=== PATIENT | female | born 1960 | race African-American/Black ===

== ENCOUNTER 2019-11-24 11:33 | Emergency (ER) | payer OTHER ==
--- OUTSIDE RECORDS SUMMARY | 2019-11-24 11:36 | XMS REPORT | Continuity of Care Document ---
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 incidentaloma 19 [facility] Hx of partial Active 01/30/2019 [facility] adrenalectomy [facility] Medications Medication Details Route Status Patient Ordering Order Source Instructions Provider Date valacyclovir Take [address] [facility] (VALTREX) 500 MG by mouth 019 [facility] of tablet two times Medicine daily. colchicine 0.6 MG Take 1 Tab ORAL Active [place] tablet by mouth 019 [facility] every 2 Medicine hours as needed. esomeprazole Take [address] [facility] (NEXIUM) 40 MG by mouth 019 [place] of capsule once. Medicine bisoprolol-hydroch Take 1 Tab ORAL Active [facility] lorothiazide by mouth 019 [place] of (ZIAC) 5-6.25 MG once. Medicin e per tablet metformin Take [address] [facility] (GLUCOPHAGE) 500 by mouth 019 [facility] MG tablet two times Medicine daily. venlafaxine Take 1 Cap ORAL Active Al (EFFEXOR-XR) 150 by mouth 019 [facility] MG XR capsule once. Medicine losartan (COZAAR) Take 100 ORAL Active [facility] 100 MG tablet mg by [facility] mouth Medicine daily. Magnesium Citrate Take 100 ORAL Active [facility] 100 MG TABS mg by [facility] mouth [facility] daily. folic acid Take [address] [facility] (FOLVITE) 400 MCG mcg by [facility] of tablet mouth Medicine daily. Cyanocobalamin Take [address] [facility] (B-12) 500 MCG mcg by [facility] f TABS mouth Medicine daily. Cholecalciferol Take 50 ORAL Active Al (VITAMIN D3) 25 mcg by [facility] TABS mouth Medicine daily. vitamin E 400 Take 400 ORAL Active Al units capsule Units by [place] o f mouth Medicine daily. Sennosides-Docusat Take by ORAL Active [facility] Sodium (COLACE mouth two [facility] of 2-IN-1 OR) times Medicine daily. Biotin 5000 MCG Take 5,000 ORAL Active [facility] CAPS mg by [facility] Medicine daily. IRON-VITAMIN C OR Take by ORAL Active [facility] daily. Medicine Calcium Take by ORAL Active [facility] Polycarbophil mouth [facility] (FIBER-CAPS OR) daily. Medicine SPIRONOLACTONE OR Take by ORAL Active [facility] daily. Medicine Allergies, Adverse Reactions, Alerts Substance Category Reaction Severity Reaction Status Date Comments S ource type Reported Codeine Propensity Active [place] to adverse 9 [facility] reactions of to drug Medicine Immunizations No Data Provided for This Section Results No Data Provided for This Section Pathology Reports No Data Provided for This Section Diagnostic Reports No Data Provided for This Section Consultation Notes No Data Provided for This Section Discharge Summaries No Data Provided for This Section History and Physicals No Data Provided for This Section Vital Signs Vital Sign Value Date Comments Source Systolic (mm Hg) 146 01/29/2019 [facility]encita ege [facility] Diastolic (mm Hg) 77 01/29/2019 [facility] Col lege [facility] Heart Rate 74 01/29/2019 [facility] Temperature Oral (F) 36.89 Danika 01/29/2019 [facility] Height 172.7 cm 01/29/2019 [facility] Weight 116.121 01/29/2019 [facility] Encounters Location Location Encounter Encounter Reason Attending ADM [place] Stat [place] Source Details Type Number For Provider Date Date Visit BCM - Office [id number] Arnie 01/29 01/29 [facility] Dany Yang Visit oYlanda DRAKE /2018 [facility] of Department Medici ne of Surgery Procedures No Data Provided for This Section Assessment and Plan No Data Provided for This Section Plan of Care Plan of Care Date Source FLU VACCINE > 6 MONTHS 01/18/2019 [facility] CERVICAL CANCER SCREENING 3 YEAR 12/07/1979 [facility] FOLLOW UP BMI FOLLOW UP PLAN 1976 [facility] dicine TETANUS SHOT (ADULT) 1973 [facility] edicine COLON CANCER SCREENIN1958 [facility] o f [facility] COLONOSCOPY Social History Social History Date Source Tobacco UseTypesPacks/DayYears UsedDate 01/30/2019 [facility] Smoker Medicine Smokeless Tobacco: Never Used Alcohol UseDrinks/Weekoz/WeekComments Never Alcohol HabitsAnswerDate Recorded How often do you have a drink containing alcohol? Never 11/24/2018 How many drinks containing alcohol do yo u have on a typical day when you are drinking? Not asked How often do you have six or more drinks on one occasion? Not asked Sex Assigned at BirthDate Recorded Not on file Job Start DateOccupationIndustry Not on file Not on file Not on file Travel HistoryTravel StartTravel End No recent travel history available. documented as of this encounter Family History No Data Provided for This Section Advance Directives No Data Provided for This Section Functional Status No Data Provided for This Section
[2019-11-24 13:20] LABS: Absolute Lymphocytes (CBC) 2.4 K/uL (0.7-4.9); Basophils % 0.5 % (0-1.3); Hematocrit 40.9 % (36.0-45.0); Lymphocytes % 39.2 % (15.3-44.8); MPV 7.7 fL (7.6-11.3); RBC Red Blood Cell Count 5.28 M/uL (3.86-4.86)
--- NOTE | 2019-11-24 13:27 | RAD REPORT ---
EXAM DESCRIPTION: RAD - Chest Single View - 11/24/2019 1:01 pm CLINICAL HISTORY: right sided pleurisy COMPARISON: Two view chest January 2019 TECHNIQUE: AP portable chest image was obtained 11/24/2019 1:01 pm . FINDINGS: Lung volumes are low. No focal mass or consolidation seen. No significant failure or volum e overload suspected. Heart and vasculature are normal. No measurable pleural effusion and no pneumot horax. No acute bony abnormality seen. No acute aortic findings suspected. IMPRESSION: Limited portable chest without acute cardiopulmonary finding.
[2019-11-24 13:47] LABS: ALT/SGPT 28 U/L (12-78); AST/SGOT 21 U/L (15-37); Albumin 3.2 g/dL (3.4-5.0); Alkaline Phosphatase 98 U/L (45-117); BUN Blood Urea Nitrogen 15 mg/dL (7-18); Bicarbonate 29 mmol/L (21-32); Bilirubin Direct < 0.1 mg/dL (0-0.2); Bilirubin Total 0.2 mg/dL (0.2-1.0); Glucose Level 132 mg/dL (74-106); Lipase 100 U/L (73-393); Potassium 4.5 mmol/L (3.5-5.1); Protein, Total 7.6 g/dL (6.4-8.2); Sodium Level 140 mmol/L (136-145); Troponin (Emerg Dept Use Only) < 0.02 ng/mL (0.0-0.045)
--- NOTE | 2019-11-24 14:29 | RAD REPORT ---
EXAM DESCRIPTION: CT - Chest For Pe Angio - 11/24/2019 2:15 pm CLINICAL HISTORY: CHEST PAIN COMPARISON: Chest Single View dated 11/24/2019; Abdomen Pelvis W Contrast dated 11/24/2019 TECHNIQUE: Dynamically enhanced 3 mm thick images of the chest were obtained during administration o f approximately 150mL Isovue 370 IV contrast. Coronal and oblique MIP reconstruction images were gene rated and reviewed. Exam utilizes a protocol to evaluate the pulmonary arterial tree. All CT scans are performed using dose optimization technique as appropriate and may include automated exposure control or mA/KV adjustment according to patient size. FINDINGS: No pulmonary emboli are identified. The aorta as imaged shows no acute or suspicious finding. No pericardial thickening or effusion. No infiltrate or mass in the lung parenchyma. No pleural effusion or pleural thickening. Heart size i s prominent. Motion degradation limits interstitial assessment. No mediastinal or hilar suspicious masses. No chest wall masses or abnormal axillary lymphadenopathy. Thoracic spine degenerative changes are present. No acute or destructive thoracic spine finding. IMPRESSION: No pulmonary emboli identified. No focal mass or consolidation. A minimal interstitial edema or infiltrate process could be masked by the respiratory motion.
--- NOTE | 2019-11-24 14:37 | RAD REPORT ---
EXAM DESCRIPTION: CT - Abdomen Pelvis W Contrast - 11/24/2019 2:24 pm CLINICAL HISTORY: Upper abd pain COMPARISON: Chest For Pe Angio dated 11/24/2019; Stone Protocol dated 09/20/2018; Mri Abdomen W/Wo Cont dated 10/24/2018 TECHNIQUE: Biphasic, helical CT imaging of the abdomen and pelvis was performed following 100 ml non -ionic IV contrast. No oral contrast given. All CT scans are performed using dose optimization technique as appropriate and may include automated exposure control or mA/KV adjustment according to patient size. FINDINGS: No acute lung base findings. Chest is evaluated separate report. In the midline left lobe a 14 millimeter rounded low-density focus is present. This was present on October 2018 MRI No other focal liver findings. No spleen or pancreatic abnormality. Cholecystectomy cl ips are present. No biliary tree dilatation. Symmetric renal function is seen with no hydronephrosis or suspicious renal mass. No pyelonephritis o r acute parenchymal process. A 3 centimeter cyst is present upper pole of the left kidney. No urinary bladder abnormality. Uterus is absent. No ovarian primary process seen. No adrenal abnormalities. Th e adrenal mass seen on prior imaging may been resected or may be isodense to liver parenchyma. No enl arging adrenal process. Prominent sigmoid diverticulosis without diverticulitis. No acute colon or small bowel process. No ap pendicitis findings. Gastric surgical changes are evident. No suspicious or active process. No free air, free fluid or inflammatory stranding. No hernia, mass or bulky lymphadenopathy. No suspicious bony findings. IMPRESSION: Contrast enhanced CT abdomen and pelvis imaging shows no worrisome or emergent finding. Nonacute findings detailed in the body of the report. A 14 millimeter low-density focus midline left lobe is probably a cyst. This was not clearly seen
--- NOTE | 2019-11-24 15:02 | ER ---
Nurse's Notes [facility] Name: Rose Marie Smith Age: 58 yrs Sex: Female : 1960 Arrival Date: 11/24/2019 Time: 11:42 Bed 20 Private MD: Diagnosis: Chest pain, unspecified;Pleurisy Presentation: 11/23 12:03 Chief complaint: Patient states: RUQ pain that is worse when taking a deep breath x 1 ss week. Denies N/V/D. Coronavirus screen: Proceed with normal triage. Patient denies a cough. Patient denies shortness of breath or difficulty breathing. Patient denies measured and/or subjective temperature greater than 100.4F prior to today's visit. Patient denies travel on a cruise ship or to a country the [facility] currently lists as an affected area. Patient denies contact with known and/or suspected case of COVID-19. Ebola Screen: Patient denies exposure to infectious person. Patient denies travel to an Ebola-affected area in the 21 days before illness onset. Initial Sepsis Screen: Does the patient meet any 2 criteria? No. Patient's initial sepsis screen is negative. Does the patient have a suspected source of infection? No. Patient's initial sepsis screen is negative. Risk Assessment: Do you want to hurt yourself or someone else? Patient reports no desire to harm self or others. Onset of symptoms was December 18, 2019. 12:03 Method Of Arrival: Ambulatory 12:03 Acuity: CHRISTIE 3 ss Historical: - Allergies: 12:05 Codeine; ss - PMHx: 12:05 Arthritis; Depression; Diabetes - NIDDM; Hypertension; ss - PSHx: 12:05 Hysterectomy; yessy knee replacements; Cholecystectomy; shoulder sx; ss - Immunization history:: Adult Immunizations up to date. - Social history:: Smoking status: Patient denies any tobacco usage or history of. - Family history:: not pertinent. - Hospitalizations: : No recent hospitalization is reported. Screenin:44 Abuse screen: Denies threats or abuse. Nutritional screening: No deficits noted. Tuberculosis screening: No symptoms or risk factors identified. Fall Risk None identified. Assessment: 12:15 General: Appears in no apparent distress. Pain: Complains of pain in posterior aspect ah of right lateral abdomen, anterior aspect of right lateral abdomen and right upper quadrant. Neuro: Level of Consciousness is awake, alert, Oriented to person, place, time, situation. Cardiovascular: Heart tones S1 S2 present Capillary refill < 3 seconds Patient's skin is warm and dry. Cardiovascular: Rhythm is sinus rhythm. Respiratory: Airway is patent is compromised Respiratory effort is even, unlabored, Respiratory pattern is regular, symmetrical. GI: No signs and/or symptoms were reported involving the gastrointestinal system. Derm: Skin is intact, is healthy with good turgor. 13:15 Reassessment: Patient and/or family updated on plan of care and expected duration. Pain ah level reassessed. Patient is alert, oriented x 3, equal unlabored respirations, skin warm/dry/pink. 14:10 Reassessment: Pt to CT scan via stretcher at this time. Vital Signs: 12:03 BP 145 / 73; Pulse 64; Resp 16; Temp 97.6; Pulse Ox 99% on R/A; Weight 120.2 kg; Height 5 ft. 8 in. (172.72 cm); 13:30 BP 143 / 85; Pulse 58; Resp 16; Pulse Ox 98% ; ah 14:38 BP 157 / 87; Pulse 57; Resp 16; Pulse Ox 100% ; ah 15:00 BP 149 / 90; Pulse 58; Resp 16; Pulse Ox 98% ; ah 15:30 BP 156 / 82; Pulse 57; Resp 18; Pulse Ox 100% ; ah 12:03 Body Mass Index 40.29 (120.20 kg, 172.72 cm) ED Course: 11:42 Patient arrived in ED. fj1 12:03 Arm band placed on right wrist. 12:04 Triage completed. ss 12:35 Panfilo Peralta MD is Attending Physician. rn 13:00 Romy Jameson, TARAS is Primary Nurse. 13:01 XRAY Chest (1 view) In Process Unspecified. EDMS 13:15 Inserted saline lock: 22 gauge in right antecubital area, using aseptic technique. 13:20 EKG done, by ED staff, reviewed by Panfilo Peralta MD. [facility] 14:15 CT Chest For PE Angio In Process Unspecified. EDMS 14:17 CT Abd/Pelvis - IV Contrast Only In Process Unspecified. EDMS 14:44 Patient has correct armband on for positive identification. Bed in low position. Call light in reach. Side rails up X 1. equipment monitor phototypesetting on. Pulse ox on. NIBP on. 15:55 IV discontinued, intact, bleeding controlled, No redness/swelling at site. Pressure dressing applied. 15:56 No provider procedures requiring assistance completed. Administered Medications: No medications were administered Outcome: 15:01 Discharge ordered by . rn 15:30 Discharged to home ambulatory. 15:30 Condition: good 15:30 Discharge instructions given to patient, Instructed on discharge instructions, follow up and referral plans. Demonstrated understanding of instructions, follow-up care. 15:56 Patient left the ED. Signatures: Dispatcher [employer] EDMS Panfilo Peralta MD MD rn Smirch, Shelby, RN RN Flores Edward 3 Thanh Correia [facility] Romy Jameson, RN RN
--- NOTE | 2019-11-24 15:02 | EDPHYS ---
Physician Documentation [facility] Name: Rose Marie Smith Age: 58 yrs Sex: Female : 1960 Arrival Date: 11/24/2019 Time: 11:42 Bed 20 Private MD: ED Physician Panfilo Peralta HPI: 11/23 14:18 This 58 yrs old Black Female presents to ER via Ambulatory with complaints of PAIN ON rn THE RT SIDE. 14:18 The patient or guardian reports chest pain that is located primarily in the right rn lateral anterior chest. Onset: 1 week(s) ago. The pain does not radiate. Associated signs and symptoms: Pertinent positives: abdominal pain, Pertinent negatives: cough, diaphoresis, lightheadedness, palpitations, recent travel, shortness of breath, syncope, vomiting. The chest pain is described as sharp, stabbing. Duration: The patient or guardian reports multiple episodes, that are intermittent. Modifying factors: The symptoms are alleviated by nothing. the symptoms are aggravated by deep breath. Severity of pain: At its worst the pain was mild in the emergency department the pain is unchanged. The patient has not experienced similar symptoms in the past. Reports right sided chest pain, sharp, stabbing, worse with deep breath, no trauma, no fever/cough/sob. Also reports mild upper abd pain. Did have recent right arm fracture and s/p surgery, no unequal swelling of arms. No hemoptysis. . Historical: - Allergies: 12:05 Codeine; ss - PMHx: 12:05 Arthritis; Depression; Diabetes - NIDDM; Hypertension; ss - PSHx: 12:05 Hysterectomy; yessy knee replacements; Cholecystectomy; shoulder sx; ss - Immunization history:: Adult Immunizations up to date. - Social history:: Smoking status: Patient denies any tobacco usage or history of. - Family history:: not pertinent. - Hospitalizations: : No recent hospitalization is reported. ROS: 14:18 Constitutional: Negative for fever, chills, and weight loss, Eyes: Negative for injury, rn pain, redness, and discharge, Neck: Negative for injury, pain, and swelling, Cardiovascular: Negative for palpitations, and edema, Respiratory: Negative for shortness of breath, cough, wheezing Abdomen/GI: Negative for nausea, vomiting, diarrhea, and constipation, MS/Extremity: Negative for injury and deformity, Skin: Negative for injury, rash, and discoloration, Neuro: Negative for headache, weakness, numbness, tingling, and seizure. Exam: 14:18 Constitutional: This is a well developed, well nourished patient who is awake, alert, rn and in no acute distress. Head/Face: Normocephalic, atraumatic. Cardiovascular: Regular rate and rhythm. No pulse deficits. Respiratory: Lungs have equal breath sounds bilaterally, clear to auscultation. No increased work of breathing, no retractions or nasal flaring. Abdomen/GI: soft, mild epigastric abd tenderness, no rebound Skin: Warm, dry with normal turgor. Normal color with no rashes, no lesions, and no evidence of cellulitis. MS/ Extremity: Pulses equal, no cyanosis. Neurovascular intact. Full, normal range of motion. Equal circumference. Neuro: Awake and alert, GCS 15, oriented to person, place, time, and situation. Cranial nerves II-XII grossly intact. Motor strength 5/5 in all extremities. Sensory grossly intact. Cerebellar exam normal. Normal gait. Vital Signs: 12:03 BP 145 / 73; Pulse 64; Resp 16; Temp 97.6; Pulse Ox 99% on R/A; Weight 120.2 kg; Height ss 5 ft. 8 in. (172.72 cm); 13:30 BP 143 / 85; Pulse 58; Resp 16; Pulse Ox 98% ; ah 14:38 BP 157 / 87; Pulse 57; Resp 16; Pulse Ox 100% ; ah 15:00 BP 149 / 90; Pulse 58; Resp 16; Pulse Ox 98% ; ah 15:30 BP 156 / 82; Pulse 57; Resp 18; Pulse Ox 100% ; ah 12:03 Body Mass Index 40.29 (120.20 kg, 172.72 cm) ss MDM: 12:35 Patient medically screened. rn 15:00 Differential diagnosis: chest wall pain, costochondritis, pleurisy, pneumonia, rn pneumothorax, pulmonary embolus. Data reviewed: vital signs, nurses notes, lab test result(s), EKG, radiologic studies, CT scan, and as a result, I will discharge patient. Counseling: I had a detailed discussion with the patient and/or guardian regarding: the historical points, exam findings, and any diagnostic results supporting the discharge/admit diagnosis, lab results, radiology results, the need for outpatient follow up, to return to the emergency department if symptoms worsen or persist or if there are any questions or concerns that arise at home. Special discussion: Based on the patient's history, exam, and Dx evaluation, there is no indication for emergent intervention or inpatient Tx. It is understood by the patient/guardian that if the Sx's persist or worsen they need to return immediately for re-evaluation. I discussed with the patient/guardian in detail that at this point there is no indication for admission to the hospital. It is understood, however, that if the symptoms persist or worsen the patient needs to return immediately for re-evaluation. ED course: CT chest PE and abdomen/pelvis neg, will dc home with pcp f/u. . 11/23 12:46 Order name: CBC with Diff; Complete Time: 13:55 rn 11/23 12:46 Order name: Basic Metabolic Panel; Complete Time: 13:55 rn 11/23 12:46 Order name: XRAY Chest (1 view); Complete Time: 13:32 rn 11/23 12:46 Order name: LFT's; Complete Time: 13:55 rn 11/23 12:46 Order name: Lipase; Complete Time: 13:55 rn 11/23 12:46 Order name: Troponin (emerg Dept Use Only); Complete Time: 13:55 rn 11/23 12:46 Order name: IV Start; Complete Time: 13:15 rn 11/23 12:46 Order name: CT Chest For PE Angio; Complete Time: 14:41 rn 11/23 12:46 Order name: CT Abd/Pelvis - IV Contrast Only; Complete Time: 14:41 rn 11/23 12:46 Order name: EKG; Complete Time: 12:47 rn 11/23 12:46 Order name: EKG - Nurse/Tech; Complete Time: 13:15 rn Administered Medications: No medications were administered Disposition: 11/24/19 15:01 Discharged to Home. Impression: Chest pain, unspecified, Pleurisy. - Condition is Stable. - Discharge Instructions: Nonspecific Chest Pain, Pleurisy. - Medication Reconciliation Form, Thank You Letter, Antibiotic Education, Prescription Opioid Use form. - Follow up: Private Physician; When: As needed; Reason: Recheck today's complaints, Re-evaluation by your physician. - Problem is an ongoing problem. - Symptoms have improved. Signatures: Dispatcher [employer] EDPanfilo Sandoval MD MD rn Smirch, Shelby, RN RN ss Harris, Amy, RN RN Corrections: (The following items were deleted from the chart) 14:24 14:18 Constitutional: Negative for fever, chills, and weight loss, Eyes: Negative for rn injury, pain, redness, and discharge, Neck: Negative for injury, pain, and swelling, Cardiovascular: Negative for palpitations, and edema, Respiratory: Negative for shortness of breath, cough, wheezing Abdomen/GI: Negative for abdominal pain, nausea, vomiting, diarrhea, and constipation, MS/Extremity: Negative for injury and deformity, Skin: Negative for injury, rash, and discoloration, Neuro: Negative for headache, weakness, numbness, tingling, and seizure, rn 15:56 15:01 11/24/2019 15:01 Discharged to Home. Impression: Chest pain, unspecified; ah Pleurisy. Condition is Stable. Forms are Medication Reconciliation Form, Thank You Letter, Antibiotic Education, Prescription Opioid Use. Follow up: Private Physician; When: As needed; Reason: Recheck today's complaints, Re-evaluation by your physician. Problem is an ongoing problem. Symptoms have improved. rn
[2019-11-24 16:09] VITALS: TEMP 97.6
[2019-11-24 16:15] VITALS: BP 156/82; O2SAT 100
--- NOTE | 2019-11-26 07:48 | EKG ---
Test Date: 2019-11-24 Test Time: 13:12:38 State Editor: BILL MEASUREMENT RESULTS: Intervals: Rate: 58 FL: 146 QRSD: 84 QT: 426 QTc: 418 [place]: P: 41 FL: 146 QRS: 13 T: 21 INTERPRETIVE STATEMENTS: Sinus bradycardia Possible Left atrial enlargement Borderline ECG Compared to ECG 03/01/2016 13:19:44 Sinus rhythm no longer present Electronically Signed On 11-26-19 07:44:57 CDT by Richard Steven
== END 2019-11-24 15:56 | disposition home or self-care (01) ==
LOC: ER 11:33
DX: R09.1 Pleurisy (principal); I10 Essential (primary) hypertension; Z88.5 Allergy status to narcotic agent
CPT/HCPCS: 93005; 85025; 80048; 36415; 80076; 84484; 83690; 71275; 74177; 71045; 99284; Q9967

== ENCOUNTER 2022-01-10 16:51 | Emergency (ER) | payer OTHER ==
[2022-01-10] MEDS ORDERED: dexAMETHasone 10 MG/ML VIAL ONE (18:02)
[2022-01-10] MEDS ORDERED: BEBTELOVIMAB 175 MG/2 ML VIAL IV ONE (18:03)
--- NOTE | 2022-01-10 18:56 | EDPHYS ---
Physician Documentation [facility] Name: Rose Marie Smith Age: 61 yrs Sex: Female : 1960 Arrival Date: 01/10/2022 Time: 16:53 Bed 15 Private MD: Trae Masters V ED Physician Paula Rosenberg HPI: 01/10 17:09 This 61 yrs old Black Female presents to ER via Wheelchair with complaints of Covid+. jmm 17:09 Onset: The symptoms/episode began/occurred gradually. Associated signs and symptoms: jmm Pertinent positives: cough, shortness of breath. Modifying factors: The patient symptoms are alleviated by nothing, the patient symptoms are aggravated by nothing. It is unknown whether or not the patient has had similar symptoms in the past. Historical: - Allergies: 17:14 Codeine; jl7 - PMHx: 17:14 Arthritis; Depression; Diabetes - NIDDM; Hypertension; jl7 - Immunization history:: Client reports receiving the 2nd dose of the Covid vaccine. - Social history:: Smoking status: Patient denies any tobacco usage or history of. ROS: 17:09 Constitutional: Positive for body aches, chills. jmm 17:09 ENT: Positive for sore throat. 17:09 Respiratory: Positive for cough. 17:09 All other systems are negative. Exam: 17:09 Constitutional: This is a well developed, well nourished patient who is awake, alert, jmm and in no acute distress. Head/Face: atraumatic. Eyes: EOMI, no conjunctival erythema appreciated ENT: Moist Mucus Membranes Neck: Trachea midline, Supple Chest/axilla: Normal chest wall appearance and motion. Cardiovascular: Regular rate and rhythm. No edema appreciated Respiratory: Normal respirations, no respiratory distress appreciated Back: Normal ROM Skin: General appearance color normal MS/ Extremity: Moves all extremities, no obvious deformities appreciated, no edema noted to the lower extremities Neuro: Awake and alert Psych: Behavior is normal, Mood is normal, Patient is cooperative and pleasant Vital Signs: 17:09 BP 124 / 71; Pulse 99; Resp 17; Temp 98.6; Pulse Ox 95% on R/A; Weight 97.98 kg; Height jl7 5 ft. 8 in. (172.72 cm); Pain 6/10; 18:02 BP 127 / 70; Pulse 91; Resp 18; Pulse Ox 97% on R/A; eh3 18:31 BP 124 / 73; Pulse 89; Resp 18; Pulse Ox 98% on R/A; eh3 17:09 Body Mass Index 32.84 (97.98 kg, 172.72 cm) jl7 MDM: 17:09 Patient medically screened. [facility] 18:55 Data reviewed: vital signs, nurses notes. Counseling: I had a detailed discussion with [facility] the patient and/or guardian regarding: the historical points, exam findings, and any diagnostic results supporting the discharge/admit diagnosis, lab results, radiology results, the need for outpatient follow up, to return to the emergency department if symptoms worsen or persist or if there are any questions or concerns that arise at home. 18:55 ED course: Patient is alert nontoxic in appearance in the ED. No signs of respiratory [facility] distress. Patient given strict return precautions. Patient understood agrees plan of care.. 01/10 17:09 Order name: Saline Lock; Complete Time: 17:49 [facility] Administered Medications: 18:01 Drug: Decadron - Dexamethasone 10 mg Route: IVP; Site: right antecubital; [facility] 19:03 Follow up: Response: No adverse reaction [facility] 18:29 Drug: Bebtelovimab 1 application Route: IV; Rate: calculated rate; Site: right [facility] antecubital; 19:03 Follow up: Response: No adverse reaction [facility] Disposition Summary: 01/10/22 18:56 Discharge Ordered Location: Home [facility] Condition: Stable [facility] Diagnosis - Coronavirus infection, unspecified [facility] Followup: [facility] - With: Trae Masters MD - When: 2 - 3 days - Reason: Recheck today's complaints, Continuance of care, Re-evaluation by your physician Discharge Instructions: - Discharge Summary Sheet [facility] - COVID-19 [facility] Forms: - Medication Reconciliation Form [facility] - Thank You Letter [facility] - Antibiotic Education [facility] - Prescription Opioid Use [facility] Prescriptions: - albuterol sulfate 90 mcg/actuation Inhalation HFA aerosol inhaler - inhale 2 puff by INHALATION route every 4 hours; 1 Pump; Refills: 0, Product [facility] Selection Permitted - Zithromax Z-Wesley 250 mg Oral Tablet - take 1 tablet by ORAL route as directed for 5 days Day 1 - take two (2) tablets jmm one time. Day 2, 3, 4 , 5 take one (1) tablet once daily.; 6 tablet; Refills: 0, Product Selection Permitted - PAXLOVID - take 300 milligram by ORAL route 2 times per day; 1 packet; Refills: 0, Product jmm Selection Permitted Signatures: Karl Larios PA PA jmm Leal, Jahala, RN RN jl7 RomanRere [facility]
--- NOTE | 2022-01-10 18:56 | ER ---
Nurse's Notes [facility] Name: Rose Marie Smith Age: 61 yrs Sex: Female : 1960 Arrival Date: 01/10/2022 Time: 16:53 Bed 15 Private MD: Trae Masters V Diagnosis: Coronavirus infection, unspecified Presentation: 01/10 17:09 Chief complaint: Patient states: Positive COVID test this morning, [employer] advocate told jl7 me to come to be on the safe side. Reports chills, achy, headache and sinus pressure x 3 days. Coronavirus screen: Vaccine status: Patient reports receiving the 2nd dose of the covid vaccine. chills, congestion, headache, Client presents with at least one sign or symptom that may indicate coronavirus-19. Standard/surgical mask placed on the client. Ebola Screen: No symptoms or risks identified at this time. Initial Sepsis Screen: Does the patient meet any 2 criteria? No. Patient's initial sepsis screen is negative. Does the patient have a suspected source of infection? No. Patient's initial sepsis screen is negative. Risk Assessment: Do you want to hurt yourself or someone else? Patient reports no desire to harm self or others. Onset of symptoms was January 07, 2022. 17:09 Method Of Arrival: Wheelchair jl 17:09 Acuity: CHRISTIE 3 jl7 Triage Assessment: 17:14 General: Appears in no apparent distress. uncomfortable, Behavior is calm, cooperative, jl7 appropriate for age. Pain: Complains of pain in GARCIA Pain currently is 6 out of 10 on a pain scale. Neuro: Level of Consciousness is awake, alert, obeys commands, Oriented to person, place, time, situation. Derm: Skin is pink, warm \T\ dry. Historical: - Allergies: 17:14 Codeine; jl7 - PMHx: 17:14 Arthritis; Depression; Diabetes - NIDDM; Hypertension; jl7 - Immunization history:: Client reports receiving the 2nd dose of the Covid vaccine. - Social history:: Smoking status: Patient denies any tobacco usage or history of. Screenin:32 Abuse screen: Denies threats or abuse. Denies injuries from another. Nutritional eh3 screening: No deficits noted. Tuberculosis screening: No symptoms or risk factors identified. Fall Risk None identified. Assessment: 18:02 Reassessment: No changes from previously documented assessment. See triage assessment.. eh3 General: Appears in no apparent distress. comfortable, Behavior is calm, cooperative, appropriate for age. Pain: Denies pain. Neuro: Level of Consciousness is awake, alert, obeys commands, Oriented to person, place, time, situation. Cardiovascular: Capillary refill < 3 seconds Patient's skin is warm and dry. Respiratory: Airway is patent Respiratory effort is even, unlabored. GI: No signs and/or symptoms were reported involving the gastrointestinal system. : No signs and/or symptoms were reported regarding the genitourinary system. EENT: No signs and/or symptoms were reported regarding the EENT system. Derm: No signs and/or symptoms reported regarding the dermatologic system. Musculoskeletal: No signs and/or symptoms reported regarding the musculoskeletal system. 18:30 Reassessment: Pt gave verbal consent to receive bebtelovimab. Verbalized understanding [facility] of possible side effects. Vital Signs: 17:09 BP 124 / 71; Pulse 99; Resp 17; Temp 98.6; Pulse Ox 95% on R/A; Weight 97.98 kg; Height jl7 5 ft. 8 in. (172.72 cm); Pain 6/10; 18:02 BP 127 / 70; Pulse 91; Resp 18; Pulse Ox 97% on R/A; eh3 18:31 BP 124 / 73; Pulse 89; Resp 18; Pulse Ox 98% on R/A; eh3 17:09 Body Mass Index 32.84 (97.98 kg, 172.72 cm) 7 ED Course: 16:53 Patient arrived in ED. mr 16:53 Trae Masters MD is Private Physician. mr 16:54 Karl [facility]arios PA is [facility]. jmm 16:54 Paula Rosenberg is Attending Physician. jmm 17:14 Triage completed. jl7 17:14 Arm band placed on right wrist. Patient placed in waiting room, Patient notified of jl7 wait time. 17:19 Holly Kwong, TARAS is Primary Nurse. jl7 17:49 Inserted saline lock: 20 gauge in right antecubital area, using aseptic technique. mb7 18:32 Patient has correct armband on for positive identification. Call light in reach. In eh3 wheelchair with wheels locked. 18:32 No provider procedures requiring assistance completed. 3 18:34 Primary Nurse role handed off by Holly Kwong RN 3 18:34 Rere Roman is Primary Nurse. 3 18:55 Trae Masters MD is Referral Physician. [facility] 19:04 IV discontinued, intact, bleeding controlled, No redness/swelling at site. Pressure eh3 dressing applied. Administered Medications: 18:01 Drug: Decadron - Dexamethasone 10 mg Route: IVP; Site: right antecubital; 3 19:03 Follow up: Response: No adverse reaction 3 18:29 Drug: Bebtelovimab 1 application Route: IV; Rate: calculated rate; Site: right 3 antecubital; 19:03 Follow up: Response: No adverse reaction 3 Medication: 19:04 VIS not applicable for this client. 3 Outcome: 18:56 Discharge ordered by . [facility] 19:17 Patient left the ED. 3 Signatures: Karl Larios PA PA [facility] Holly Kwong RN RN [address] [id number] Rere Roman [facility]
[2022-01-10 19:34] VITALS: TEMP 98.6
[2022-01-10 19:40] VITALS: BP 124/73; O2SAT 98
== END 2022-01-10 19:17 | disposition home or self-care (01) ==
LOC: ER 16:51
DX: U07.1 COVID-19 (principal); E11.9 Type 2 diabetes mellitus without complications; I10 Essential (primary) hypertension; Z88.5 Allergy status to narcotic agent
CPT/HCPCS: 96375; 96374; 99283; J1100

== ENCOUNTER 2022-06-06 13:19 | Emergency (ER) | payer OTHER ==
[2022-06-06] MEDS ORDERED: KETOROLAC 30 MG/ML INJ ONE (13:46)
--- NOTE | 2022-06-06 14:13 | RAD REPORT ---
EXAM DESCRIPTION: CT - Stone Protocol - 06/06/2022 1:59 pm CLINICAL HISTORY: low back pain COMPARISON: Abdomen Pelvis W Contrast dated 11/24/2019; Stone Protocol dated 09/20/2018 TECHNIQUE: Axial 3 mm thick images were obtained without oral or IV contrast. The [id number] span s the entirety of the system including uppermost abdomen and lung bases. All CT scans are performed using dose optimization technique as appropriate and may include automated exposure control or mA/KV adjustment according to patient size. FINDINGS: No hydronephrosis is present and no obstructing ureteral calculi. No suspicious renal mass es. Isodense masses and pyelonephritis are not excluded on a stone protocol CT scan. No significant a drenal finding. Urinary bladder is mostly contracted limiting assessment. Uterus appears to be surgic ally absent but may be atrophic. Central pelvic detail is limited by body habitus affects. There are numerous pelvic floor phleboliths present. Ovaries are absent or isodense to adjacent on opacified elian wel. A primary ovarian process is not suspected. Imaged portions of the liver, spleen and pancreas show no suspicious findings on non-contrast imaging . Cholecystectomy clips are present. No biliary tree dilatation. Gastric surgical changes are present. A small hiatal hernia is present. An acute gastric process is n ot seen. No small bowel abnormalities identified. No appendicitis findings. Patient has sapp diverticu losis most prominent in the sigmoid colon. Moderately large stool volume is seen filling but not dila ting most of the colon. No hernia, mass or bulky lymphadenopathy noted. No free air, free fluid or inflammatory stranding. Proximal right femur hardware is in place. No acute proximal femur for bony pelvic finding. SI joint degenerative changes are present. Prominent lumbar and lower thoracic degenerative changes are presen t. No acute compression fracture seen. Degenerative changes are most pronounced at L2-3. An acute bon y finding not seen. IMPRESSION: No hydronephrosis, obstructing calculus or acute finding identifiable. Uterus appears to be absent rather than atrophic. Ovaries appear to be present but are not clearly di stinguishable from the abutting on opacified small bowel. Primary ovarian process not suspected. No a bnormal FAMILY [employer] SPECIALIST air collection. Sapp diverticulosis without diverticulitis. No acute GI process confirmed. Isodense masses and pyelonephritis are not excluded on stone protocol technique.
[2022-06-06 14:16] LABS: Urine Blood Negative (Negative); Urine Glucose Negative (Negative); Urine Protein Negative (Negative); Urine Specific Gravity 1.025 (1.005-1.030); Urine pH 5.5 (5.0-7.0)
[2022-06-06 14:47] LABS: Renal Epithelial <5 /HPF (None Seen); Urine Bacteria <20 /HPF (<20); Urine Crystals Unidentified Few /HPF (None Seen); Urine Mucus Slight /HPF (None Seen); Urine RBC 21-50 /HPF (None Seen); Urine WBC Clump Occasional /HPF (None Seen)
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
[2022-06-06 15:44] VITALS: BP 139/96; TEMP 98.1; O2SAT 100
== END 2022-06-06 15:40 | disposition home or self-care (01) ==
LOC: ER 13:19
DX: N39.0 Urinary tract infection, site not specified (principal); M54.31 Sciatica, right side; I10 Essential (primary) hypertension; Z88.5 Allergy status to narcotic agent
CPT/HCPCS: 74176; 76377; 81003; 81015; 87086; 87088; 96372; 99284

== ENCOUNTER 2022-11-27 09:22 | Emergency (ER) | payer OTHER ==
[2022-11-27] MEDS ORDERED: predniSONE 20 MG TAB ONE (10:20)
[2022-11-27] MEDS ORDERED: AZITHROMYCIN 250 MG TAB ONE (10:20)
[2022-11-27] MEDS ORDERED: FAMOTIDINE 20 MG TAB ONE (10:20)
[2022-11-27] MEDS ORDERED: ACETYLCYST 6,000 MG/30 ML VIAL ONE (10:21)
--- NOTE | 2022-11-27 11:08 | RAD REPORT ---
EXAM DESCRIPTION: RAD - Chest Pa And Lat (2 Views) - 11/27/2022 11:02 am CLINICAL HISTORY: COUGH COMPARISON: Chest Single View dated 11/24/2019; Chest Pa And Lat (2 Views) dated 01/26/2019; CHEST PA AN D LAT 2 VIEW dated 03/10/2015 FINDINGS: Lines: None. Lungs: No evidence of edema or pneumonia. Pleural: No significant pleural effusions or pneumothorax. Cardiac: The heart size is within normal limits. Mediastinum: Within normal limits. Bones: No acute fractures. Bridging osteophytes in the spine . Plate and screw hardware at the right humerus. Soft tissue anchor in the left humeral head. Other: None IMPRESSION: No acute cardiopulmonary disease.
--- NOTE | 2022-11-27 12:13 | ER ---
Nurse's Notes [facility] Name: Rose Marie Smith Age: 61 yrs Sex: Female : 1960 Arrival Date: 11/27/2022 Time: 09:22 Bed 12 Private MD: Trae Masters V Diagnosis: SARS-associated coronavirus as the cause of diseases classified elsewhere;Other acute sinusitis Presentation: 11/27 09:44 Chief complaint: Patient states: FLU-LIKE S/S x5 DAYS. Coronavirus screen: Client bp presents with at least one sign or symptom that may indicate coronavirus-19. Standard/surgical mask placed on the client. Client reports previous positive COVID test result. Ebola Screen: No symptoms or risks identified at this time. Initial Sepsis Screen: Does the patient meet any 2 criteria? No. Patient's initial sepsis screen is negative. Does the patient have a suspected source of infection? No. Patient's initial sepsis screen is negative. Risk Assessment: Do you want to hurt yourself or someone else? Patient reports no desire to harm self or others. Onset of symptoms is unknown. 09:44 Method Of Arrival: Ambulatory bp 09:44 Acuity: HCRISTIE 3 bp Triage Assessment: 09:45 General: Appears in no apparent distress. Behavior is cooperative, appropriate for age. bp Pain: Denies pain. EENT: Reports nasal congestion pain when swallowing. Neuro: No deficits noted. Cardiovascular: No deficits noted. Respiratory: Reports cough that is. GI: No signs and/or symptoms were reported involving the gastrointestinal system. : No signs and/or symptoms were reported regarding the genitourinary system. Derm: No deficits noted. Musculoskeletal: No deficits noted. Historical: - Allergies: 09:45 Codeine; bp - PMHx: 09:45 Arthritis; Depression; Diabetes - NIDDM; Hypertension; bp - Immunization history:: Adult Immunizations. - Social history:: Smoking status: . Screenin:[address] [facility] ED Fall Risk Assessment (Adult) History of falling in the last 3 months, bp including since admission No falls in past 3 months (0 pts). Abuse screen: Denies threats or abuse. Denies injuries from another. Nutritional screening: No deficits noted. Tuberculosis screening: No symptoms or risk factors identified. Assessment: 10:47 Reassessment: awaiting x-ray . aa5 Vital Signs: 09:44 BP 134 / 72; Pulse 94; Resp 16; Temp 97.5; Pulse Ox 99% ; bp ED Course: 09:27 Patient arrived in ED. im 09:28 Trae Masters MD is Private Physician. im 09:39 Nikkie Watts [facility]NP-C [facility] snw 09:40 Panfilo Peralta MD is Attending Physician. snw 09:45 Triage completed. bp 09:45 Arm band placed on. bp 09:46 Patient has correct armband on for positive identification. bp 11:04 Chest Pa And Lat (2 Views) XRAY In Process Unspecified. EDMS 12:12 Trae Masters MD is Referral Physician. snw 12:24 No provider procedures requiring assistance completed. Patient did not have IV access aa5 during this emergency room visit. Administered Medications: 10:47 Drug: AZITHromycin PO 500 mg Route: PO; aa5 12:20 Follow up: Response: No adverse reaction aa5 10:47 Drug: predniSONE PO 40 mg Route: PO; aa5 12:20 Follow up: Response: No adverse reaction aa5 10:47 Drug: Famotidine PO 20 mg Route: PO; aa5 12:20 Follow up: Response: No adverse reaction aa5 10:47 Drug: Acetylcysteine PO 600 mg Route: PO; aa5 12:20 Follow up: Response: No adverse reaction aa5 Medication: 12:20 VIS not applicable for this client. aa5 Outcome: 12:13 Discharge ordered by . snw 12:24 Discharged to home ambulatory. aa5 12:24 Condition: stable 12:24 Discharge instructions given to patient, Instructed on discharge instructions, follow up and referral plans. medication usage, Demonstrated understanding of instructions, follow-up care, medications, Prescriptions given X 2. 12:25 Patient left the ED. aa5 Signatures: Dispatcher [employer] EDMS Nikkie Watts FNP-C [employer]-Eli Wellington, RN RN aa5 Bigg Mike, TARAS RN bp Ita Soria im
--- NOTE | 2022-11-27 12:13 | EDPHYS ---
Physician Documentation [facility] Name: Rose Marie Smith Age: 61 yrs Sex: Female : 1960 Arrival Date: 11/27/2022 Time: 09:22 Bed 12 Private MD: Trae Masters V ED Physician Panfilo Peralta HPI: 11/27 10:02 This 61 yrs old Black Female presents to ER via Ambulatory with complaints of Covid snw postive with symptoms. 10:02 Onset: The symptoms/episode began/occurred 5 day(s) ago, and became persistent. snw Modifying factors: The patient symptoms are alleviated by nothing, the patient symptoms are aggravated by activity. The patient has not experienced similar symptoms in the past. The patient has not recently seen a physician. recovering from femur fx and on bone regeneration/growth regimen . Historical: - Allergies: 09:45 Codeine; bp - PMHx: 09:45 Arthritis; Depression; Diabetes - NIDDM; Hypertension; bp - Immunization history:: Adult Immunizations. - Social history:: Smoking status: . ROS: 10:00 Eyes: Negative for injury, pain, redness, and discharge. snw 10:00 Neck: Negative for injury, pain, and swelling, Cardiovascular: Negative for chest pain, palpitations, and edema. 10:00 Abdomen/GI: Negative for abdominal pain, nausea, vomiting, diarrhea, and constipation, Back: Negative for injury and pain, : Negative for injury, bleeding, discharge, and swelling, MS/Extremity: Negative for injury and deformity, Skin: Negative for injury, rash, and discoloration, Neuro: Negative for headache, weakness, numbness, tingling, and seizure, Psych: Negative for depression, anxiety, suicide ideation, homicidal ideation, and hallucinations. 10:00 Constitutional: Positive for body aches. 10:00 ENT: Positive for sinus congestion. 10:00 Respiratory: Positive for cough, with no reported sputum. Exam: 09:57 Constitutional: This is a well developed, well nourished patient who is awake, alert, snw and in no acute distress. Head/Face: Normocephalic, atraumatic. Eyes: Pupils equal round and reactive to light, extra-ocular motions intact. Lids and lashes normal. Conjunctiva and sclera are non-icteric and not injected. Cornea within normal limits. Periorbital areas with no swelling, redness, or edema. 09:57 Cardiovascular: Regular rate and rhythm with a normal S1 and S2. No gallops, murmurs, or rubs. Normal PMI, no JVD. No pulse deficits. Abdomen/GI: Soft, non-tender, with normal bowel sounds. No distension or tympany. No guarding or rebound. No evidence of tenderness throughout. 09:57 Back: No spinal tenderness. No costovertebral tenderness. Full range of motion. Skin: Warm, dry with normal turgor. Normal color with no rashes, no lesions, and no evidence of cellulitis. MS/ Extremity: Pulses equal, no cyanosis. Neurovascular intact. Full, normal range of motion. Neuro: Awake and alert, GCS 15, oriented to person, place, time, and situation. Cranial nerves II-XII grossly intact. Motor strength 5/5 in all extremities. Sensory grossly intact. Cerebellar exam normal. Normal gait. Psych: Awake, alert, with orientation to person, place and time. Behavior, mood, and affect are within normal limits. 09:57 ENT: Nose: Nasal mucosa: edematous, Mouth: is normal, Voice: congested. 09:57 Respiratory: the patient does not display signs of respiratory distress, Respirations: normal, Breath sounds: bronchial sounds, that are moderate, + upper airway congestion. Vital Signs: 09:44 BP 134 / 72; Pulse 94; Resp 16; Temp 97.5; Pulse Ox 99% ; bp MDM: 09:40 Patient medically screened. snw 10:05 Differential diagnosis: viral Infection, bacterial infection, bronchitis. Data snw reviewed: vital signs, nurses notes, radiologic studies, plain films. Counseling: I had a detailed discussion with the patient and/or guardian regarding: the historical points, exam findings, and any diagnostic results supporting the discharge/admit diagnosis. 11/27 09:56 Order name: Chest Pa And Lat (2 Views) XRAY; Complete Time: 11:10 snw Administered Medications: 10:47 Drug: AZITHromycin PO 500 mg Route: PO; aa5 12:20 Follow up: Response: No adverse reaction aa5 10:47 Drug: predniSONE PO 40 mg Route: PO; aa5 12:20 Follow up: Response: No adverse reaction aa5 10:47 Drug: Famotidine PO 20 mg Route: PO; aa5 12:20 Follow up: Response: No adverse reaction aa5 10:47 Drug: Acetylcysteine PO 600 mg Route: PO; aa5 12:20 Follow up: Response: No adverse reaction aa5 Disposition: 13:05 Co-signature as Attending Physician, Panfilo Peralta MD I reviewed the patient's care rn provided by the Advanced Practice Provider and agree with the diagnosis and treatment plan. Disposition Summary: 11/27/22 12:13 Discharge Ordered Location: Home snw Condition: Stable snw Diagnosis - SARS-associated coronavirus as the cause of diseases classified elsewhere snw - Other acute sinusitis snw Followup: snw - With: Trae Masters MD - When: 2 - 3 days - Reason: Recheck today's complaints, Continuance of care, Re-evaluation by your physician Followup: snw - With: Emergency Department - When: As needed - Reason: Worsening of condition Discharge Instructions: - Discharge Summary Sheet snw - Sinusitis, Adult snw - Aspirin and Your Heart snw - COVID-19 snw - 10 Things You Can Do to Manage Your COVID-19 Symptoms at Home - [facility] (01/02/2021) snw Forms: - Medication Reconciliation Form snw - Thank You Letter snw - Antibiotic Education snw - Prescription Opioid Use snw Prescriptions: - acetylcysteine 600 mg Oral capsule - take 1 capsule by ORAL route 2 times per day; 180 capsule; Refills: 0, Product snw Selection Permitted - Zithromax 500 mg Oral Tablet - take 1 tablet by ORAL route once daily for 5 days; 5 tablet; Refills: 0, snw Product Selection Permitted Signatures: Dispatcher [employer] Nikkie Mary FNP-C [employer] SPECIALIST-Csnw Panfilo Peralta MD MD rn Calderon, Audri RN RN aa5 Bigg Mike RN RN bp
[2022-11-27 12:56] VITALS: BP 134/72; TEMP 97.5; O2SAT 99
== END 2022-11-27 12:25 | disposition home or self-care (01) ==
LOC: ER 09:22
DX: U07.1 COVID-19 (principal); J01.80 Other acute sinusitis; Z88.5 Allergy status to narcotic agent
CPT/HCPCS: 71046; 99283; J7512; J7608

== ENCOUNTER 2023-04-29 11:57 | Emergency (ER) | payer OTHER ==
--- OUTSIDE RECORDS SUMMARY | 2023-04-29 12:02 | XMS REPORT | Continuity of Care Document ---
:[address] [facility] [place], [place] t Address [address] [place] [address] [place] [id number] Care Team Providers Name Role Phone Trae Masters MD Primary Care Physician [phone] KERA VAN Attending Clinician Unavailable MARY MOLINA NATASHA Attending Clinician Unavailable Robert Attending Clinician Unavailable FOG_A_Provider Attending Clinician Unavailable Pepe Keene Attending Clinician Unavailable Tomas Cartwright Rahil Attending Clinician Unavailable KERA VAN M.D. Attending Clinician Unavailable KERA MURRAY M.D. Attending Clinician Unavailable TREMAINE SHAW P.A. Attending Clinician Unavailable BENNIE GUERRERO Attending Clinician Unavailable DIAZ HEALY M.D. Attending Clinician Unavailable MARYA OCASIO M.D., Jose MALHOTRA Attending Clinician Unavailable MARY MOLINA NATASHA Admitting Clinician Unavailable Robert Admitting Clinician Unavailable FOG_A_Provider Admitting Clinician Unavailable KNOW, DOES_NOT Admitting Clinician Unavailable Tomas Cartwright Rahil Admitting Clinician Unavailable BENNIE GUERRERO Admitting Clinician Unavailable MARYA OCASIO M.D., MARYA Admitting Clinician Laure yap Payers Payer Name Policy Type Policy Number Effective Date Expiration Date Mehdi gold AEDHRUV CHOICE POS [id number] 2013 00:00:00 II AET AET [id number] AETNA [id number] 2013 00:00:00 Problems Condition Condition Condition Status Onset Resolution Last Treating Co mments Source Name Details Category Date Date Treatment Clinician Date Adrenal Adrenal Disease Recurre [facility] right right 00:[facility]: [place] [id number] Center History of History of Problem Resolve [facility] Chronic Chronic d [facility] gout of gout of ans left knee, left knee, unspecifie unspecifie d cause d cause History of History of Problem Resolve [facility] depression depression d Ph ysici ans Diabetes Diabetes Problem Active [facility] mellitus mellitus Physic i ans History of History of Problem Resolve [facility] hemorrhoid hemorrhoid d Ph ysici s s ans History of History of Problem Resolve [facility] gout gout d Physici ans History of History of Problem Resolve UT Hernia Hernia d Physici ans Hypertensi Hypertensi Problem Active U T on on Physici ans History of History of Problem Resolve [facility] hypertensi hypertensi d Ph ysici on on ans History of History of Problem Resolve 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 on Joint pain Joint pain Problem Active U T of lower of lower Physic i extremity extremity ans Hand pain Hand pain Problem Active [facility] Physici ans Hyperlipid Hyperlipid Problem Active U T emia emia Physici ans Anxiety Anxiety Problem Active [facility] ans Depression Depression Problem Active U T Physici ans Morbid Morbid Problem Active [facility] obesity obesity Physici ans Vulvovagin Vulvovagin Problem Active U T al al Physici condyloma condyloma ans Closed Closed Problem Active UT displaced displaced Phys ici oblique oblique ans fracture fracture of shaft of shaft of right of right humerus, humerus, initial initial encounter encounter Arthritis Arthritis Problem Active [facility] Physici ans Right knee Right knee Problem Active U T pain pain Physici ans Contusion Contusion Problem Active UT of right of right Physic i knee, knee, ans initial initial encounter encounter Status Status Problem Active UT post total post total Ph ysici right knee right knee an s replacemen replacemen t using t using cement cement Status Status Problem Active UT post total post total Ph ysici left knee left knee ans replacemen replacemen t using t using cement cement Allergies, Adverse Reactions, Alerts Allergy Allergy Status Severity Reaction(s) Onset Inactive Treating Comm ents Source Name Type Date Date Clinician Vikki Geronimo Active Unsure of [facility]- [facility] adverse [facility]: was a Medical reaction 00 long time Cent[facility] r s ago codeine Allergy Active [facility] to drug Physici (finding ans ) Codeine Allergy Active [facility] Derivati to drug Physici ves (finding ans ) Mold Allergy Active Respiratory Azal ea to distress [facility] substanc dic e Sports Medicin e Family History Family Member Diagnosis Comments Start Date Stop Date Source Mother Family history of heart [facility] failure Mother Family history of [facility] myocardial infarction Mother Family history of [facility] hypertension Mother Family history of diabetes [facility] mellitus Mother Family history of thyroid [facility] disease Mother Family history of cardiac [facility] disorder Father Family history of malignant [facility] neoplasm of prostate Father Family history of lung [facility] cancer Sister Family history of thyroid [facility] disease Sister Family history of Hepatitis [facility] Sister Family history of COPD, [facility] severe Social History Social Habit Start Date Stop Date Quantity Comments Source Alcohol intake 2019-01-11 2019-01-11 [facility]finding[facility] Tobacco use and 2019-01-10 2019-01-[address] [facility] exposure 00:[facility]00 00:00:00 non-user [facility] Alcohol Comment 2019-01-10 2019-01-[address] [facility] 00[facility]00:00 00:00:00 [facility] Center Sex Assigned At [address] [facility] 00:[facility]00 [facility]00 [facility] Smoking Status Start Date Stop Date Source Never Smoker [facility] Medications Ordered Filled Start Stop Current Ordering Indication Dosage Frequency Signature Comments Components Source Medication Medication Date Date Medication? Clinician (SIG) Name Name Diclofenac Diclofenac Yes KERA Q0.5D APPLY UT Sodium 1 % Sodium 1 % 5-05 CARLOTA SPARINGLY Physici Transdermal Transdermal 00:00: M.D. TO ans Gel Gel 00 AFFECTED AREA(S) TWICE DAILY Meloxicam Meloxicam Yes KERA TAKE 1 UT 15 MG Oral 15 MG Oral 3-26 CARLOTA TABLET BY Physici Tablet Tablet 00:00: M.D. MOUTH ans 00 EVERY DAY WITH FOOD Tylenol Tylenol 2019-0 Yes REEJU TAKE 1 UT with with 2-03 COLIN TABLET Physici Codeine #3 Codeine #3 00:00: P.A. EVERY 6 TO ans 300-30 MG 300-30 MG 00 8 HOURS Oral Tablet Oral Tablet NEEDED FOR PAIN. traMADol traMADol 2019-0 Yes REEJU Q6H TAKE 1 UT HCl - 50 MG HCl - 50 MG 2-03 COLIN TABLET [facility] Oral Tablet Oral Tablet 00:00: P.A. EVERY 6 ans 00 HOURS NEEDED FOR BREAKTHROU GH PAIN. traMADol traMADol Yes KERA MURRAY 1 TAKE 1 UT HCl - 50 MG HCl - 50 MG 1-29 M.D. TABLET Phys[facility] Oral Tablet Oral Tablet 00:00: EVERY 6 ans 00 HOURS NEEDED FOR PAIN. oxyCODONE-A oxyCODONE-A Yes KERA Take 1-2 UT cetaminophe cetaminophe 1-16 CARLOTA PO Q 6hrs Physici n 10-325 MG n 10-325 MG 00:00: M.D. PRN pain ans Oral Tablet Oral Tablet 00 metFORMIN Yes 500mg Take [address] [facility] [address] (GLUCOPHAGE 7-26 mg by [facility] ) 500 MG 12:51: mouth 2 Medica l tablet 14 (two) Center times daily with breakfast and dinner. bisoprolol- Yes 1{tbl} QD Take [address] hydroCHLORO 7-26 tablet by Omer[facility] es thiazide 12:51: mouth Medical (ZIAC) 14 daily. [place] 5-6.25 mg per tablet venlafaxine Yes 150mg QD Take [address] (EFFEXOR-XR 7-26 mg by [facility] ) 150 MG 24 12:51: mouth Medic al hr capsule 14 daily. [place] venlafaxine Yes 150mg QD Take [address] (EFFEXOR-XR 7-26 mg by [facility] ) 150 MG 24 12:51: mouth Medic al hr capsule 14 daily. [place] esomeprazol Yes 40mg QD Take [address] [facility] (NEXIUM) 7-26 by mouth [facility] 40 MG 12:51: daily. Medical capsule 14 [place] losartan Yes 100mg QD Take [address] (COZAAR) 7-26 mg by [facility] 100 MG 12:51: mouth Medical tablet 14 daily. [place] magnesium 0 Yes QD Take by [facility] citrate 100 7-26 [facility] mg Tab 12:51: daily. Medical 14 Center folic acid 0 Yes 400ug QD Take [address] (FOLVITE) 7-26 mcg by [facility] 400 MCG 12:51: mouth Medical tablet 14 daily. [place] b complex 2018- Yes 1{capsu QD Take [address] vitamins 7-26 le} capsule by [facility] capsule 12:51: mouth Medical 14 daily. [place] cholecalcif Yes 5000U QD Take 5,[address] christal, 7-26 Units by [facility] vitamin D3, 12:51: mouth Medic al 5,000 unit 14 daily. [place] Tab vitamin E 0 Yes 400U QD Take [address] 400 UNIT 7-26 Units by [facility] capsule 12:51: mouth Medical 14 daily. [place] docusate Yes 2{tbl} Q.5D Take 2 [facility] sodium 7-26 tablets by [facility] (COLACE 12:51: mouth 2 Medical ORAL) 14 (two) Center times daily. biotin 5 mg 2018- Yes QD Take by [facility] Tab 7-26 [facility] 12:51: daily. Medical 14 [place] iron,carbon 0 Yes QD Take by [facility] yl/ascorbic 7-26 mouth [facility] acid 12:51: daily. Medical (IRON,CARBO 14 Center NYL-VITAMIN C ORAL) FIBER-CAPS, 2018-0 Yes 2{capsu Q.5D Take [address] PSYLLIUM 7-26 le} capsules [facility] HUSK, ORAL 12:51: by mouth 2 M edical 14 (two) Center times daily. metFORMIN 2019-0 Yes 500mg Take [address] (GLUCOPHAGE 7-26 mg by [facility] ) 500 MG 12:51: mouth 2 Medica l tablet 14 (two) Center times daily with breakfast and dinner. bisoprolol- 2018-0 Yes 1{tbl} QD Take [address] hydroCHLORO 7-26 tablet by Omero es thiazide 12:51: mouth Medical (ZIAC) 14 daily. [place] 5-6.25 mg per tablet esomeprazol 2018-0 Yes 40mg QD Take [address] [facility] (NEXIUM) 7-26 by mouth [facility] 40 MG 12:51: daily. Medical capsule 14 [place] losartan Yes 100mg QD Take [address] (COZAAR) 7-26 mg by [facility] 100 MG 12:51: mouth Medical tablet 14 daily. [place] magnesium Yes QD Take by [facility] citrate 100 7-26 mouth [facility] mg Tab 12:51: daily. Medical 14 [place] folic acid Yes 400ug QD Take [address] (FOLVITE) 7-26 mcg by [facility] 400 MCG 12:51: mouth Medical tablet 14 daily. [place] b complex Yes 1{capsu QD Take [address] vitamins 7-26 le} capsule by [facility] capsule 12:51: mouth Medical 14 daily. [place] cholecalcif Yes 5000U QD Take 5,[address] christal, 7-26 Units by [facility] vitamin D3, 12:51: mouth Medic al 5,000 unit 14 daily. [place] Tab vitamin E Yes 400U QD Take [address] 400 UNIT 7-26 Units by [facility] capsule 12:51: mouth Medical 14 daily. [place] docusate Yes 2{tbl} Q.5D Take 2 [facility] sodium 7-26 tablets by [facility] (COLACE 12:51: mouth 2 Medical ORAL) 14 (two) Center times daily. biotin 5 mg Yes QD Take by [facility] Tab 7-26 [facility] 12:51: daily. Medical 14 [place] iron,carbon Yes QD Take by [facility] yl/ascorbic 7-26 mouth [facility] acid 12:51: daily. Medical (IRON,CARBO 14 [place] NYL-VITAMIN C ORAL) FIBER-CAPS, Yes 2{capsu Q.5D Take [address] PSYLLIUM 7-26 le} capsules [facility] HUSK, ORAL 12:51: by mouth 2 M edical 14 (two) Center times daily. Imiquimod 5 Imiquimod 5 Yes HUMERA APPLY TO UT % External % External 6-18 PEDLEY AFFECTED Physici Cream Cream 13:06: P.A. AREAS 3 ans 56 TIMES WEEKLY WASH OFF AFTER 6-10 HOURS acetaminoph acetaminoph No acetaminop [facility] en 500 mg en 500 mg hen 500 mg [facility] tablet TAKE tablet TAKE tablet dic 2 TABLETS 2 TABLETS TAKE 2 Spo rts BY MOUTH BY MOUTH TABLETS BY M edicin EVERY 8 EVERY 8 MOUTH e HOURS HOURS EVERY 8 HOURS albuterol albuterol No albuterol [facility] sulfate HFA sulfate HFA sulfate [facility] 90 90 HFA 90 dic mcg/actuati mcg/actuati mcg/actuat Sports on aerosol on aerosol ion Med icin inhaler inhaler aerosol e INHALE 2 INHALE 2 inhaler PUFFS EVERY PUFFS EVERY INHALE 2 4 HOURS 4 HOURS PUFFS EVERY 4 HOURS amitriptyli amitriptyli No amitriptyl [facility] ne 10 mg ne 10 mg ine 10 mg Or thope tablet TAKE tablet TAKE tablet dic 1 TABLET BY 1 TABLET BY TAKE 1 Sports MOUTH MOUTH TABLET BY Medicin EVERYDAY AT EVERYDAY AT MOUTH e BEDTIME BEDTIME EVERYDAY AT BEDTIME amlodipine amlodipine No amlodipine [facility] 10 mg 10 mg 10 mg [facility] tablet TAKE tablet TAKE tablet dic 1 TABLET BY 1 TABLET BY TAKE 1 Sports MOUTH EVERY MOUTH EVERY TABLET BY Medicin DAY DAY MOUTH e EVERY DAY amoxicillin amoxicillin No amoxicilli [facility] 500 mg 500 mg n 500 mg [facility] capsule capsule capsule dic TAKE 1 TAKE 1 TAKE 1 Sports CAPSULE BY CAPSULE BY CAPSULE BY Medicin MOUTH EVERY MOUTH EVERY MOUTH e 8 HOURS 8 HOURS EVERY 8 UNTIL ALL UNTIL ALL HOURS TAKEN TAKEN UNTIL ALL TAKEN amoxicillin amoxicillin No amoxicilli [facility] [phone] n 875 [facility] mg-potassiu mg-potassiu mg-potassi dic m m um Sports clavulanate clavulanate clavulanat Medicin 125 mg 125 mg e 125 mg e tablet TAKE tablet TAKE tablet 1 TABLET BY 1 TABLET BY TAKE 1 MOUTH EVERY MOUTH EVERY TABLET BY 12 HOURS 12 HOURS MOUTH FOR 7 DAYS FOR 7 DAYS EVERY 12 HOURS FOR 7 DAYS azithromyci azithromyci No azithromyc [facility] n 250 mg n 250 mg in 250 mg Or thope tablet TAKE tablet TAKE tablet dic BY MOUTH 2 BY MOUTH 2 TAKE BY Sports TABLETS TABLETS MOUTH 2 Medici n TODAY THEN TODAY THEN TABLETS e 1 TABLET 1 TABLET TODAY THEN DAILY FOR DAILY FOR 1 TABLET NEXT 4 DAYS NEXT 4 DAYS DAILY FOR NEXT 4 DAYS biotin biotin No biotin [facility] 10,000 mcg 10,000 mcg 10,000 mcg [facility] capsule capsule capsule dic TAKE BY TAKE BY TAKE BY Sports MOUTH 1 MOUTH 1 MOUTH 1 Medici n TABLET TABLET TABLET e DAILY DAILY DAILY biotin biotin No biotin [facility] 5,000 mcg 5,000 mcg 5,000 mcg [facility] sublingual sublingual sublingual dic tablet TAKE tablet TAKE tablet Sports BY MOUTH 1 BY MOUTH 1 TAKE BY Medicin TABLET TABLET MOUTH 1 e DAILY DAILY TABLET DAILY bisoprolol bisoprolol No bisoprolol [facility] fumarate 10 fumarate 10 fumarate [facility] mg tablet mg tablet 10 mg dic TAKE 1 TAKE 1 tablet Sports TABLET BY TABLET BY TAKE 1 Med icin MOUTH EVERY MOUTH EVERY TABLET BY e DAY DAY MOUTH EVERY DAY celecoxib celecoxib No celecoxib [facility] 200 mg 200 mg 200 mg [facility] capsule capsule capsule dic TAKE 1 TAKE 1 TAKE 1 Sports CAPSULE BY CAPSULE BY CAPSULE BY Medicin MOUTH EVERY MOUTH EVERY MOUTH e DAY WITH DAY WITH EVERY DAY FOOD FOOD WITH FOOD cholecalcif cholecalcif No cholecalci [facility] christal christal ferol [facility] (vitamin (vitamin (vitamin dic D3) 25 mcg D3) 25 mcg D3) 25 mcg Sports (1,000 (1,000 (1,000 Medicin unit) unit) unit) e tablet TAKE tablet TAKE tablet 2 TABLETS 2 TABLETS TAKE 2 BY MOUTH BY MOUTH TABLETS BY EVERY DAY EVERY DAY MOUTH EVERY DAY colchicine colchicine No colchicine [facility] 0.6 mg 0.6 mg 0.6 mg [facility] tablet TAKE tablet TAKE tablet dic 1 TABLET BY 1 TABLET BY TAKE 1 Sports MOUTH TWICE MOUTH TWICE TABLET BY Medicin A DAY A DAY MOUTH e TWICE A DAY cyclobenzap cyclobenzap No cyclobenza [facility] rine 10 mg rine 10 mg natan 10 [facility] tablet TAKE tablet TAKE mg tablet dic 1 TABLET BY 1 TABLET BY TAKE 1 Sports MOUTH MOUTH TABLET BY Medicin EVERYDAY AT EVERYDAY AT MOUTH e BEDTIME BEDTIME EVERYDAY AT BEDTIME diclofenac diclofenac No diclofenac [facility] sodium 75 sodium 75 sodium 75 [facility] mg mg mg dic tablet,anil tablet,anil tablet,del Sports yed release yed release ayed M edicin TAKE 1 TAKE 1 release e TABLET BY TABLET BY TAKE 1 MOUTH TWICE MOUTH TWICE TABLET BY A DAY A DAY MOUTH NEEDED NEEDED TWICE A DAY NEEDED etodolac etodolac No etodolac Aza barrington 400 mg 400 mg 400 mg [facility] tablet TAKE tablet TAKE tablet dic 1 TABLET BY 1 TABLET BY TAKE 1 Sports MOUTH TWICE MOUTH TWICE TABLET BY Medicin A DAY WITH A DAY WITH MOUTH e FOOD FOOD TWICE A DAY WITH FOOD gabapentin gabapentin No gabapentin [facility] 100 mg 100 mg 100 mg [facility] capsule capsule capsule dic TAKE 1 TAKE 1 TAKE 1 Sports CAPSULE BY CAPSULE BY CAPSULE BY Medicin MOUTH AT MOUTH AT MOUTH AT e BEDTIME BEDTIME BEDTIME hydrochloro hydrochloro No hydrochlor [facility] thiazide 25 thiazide 25 othiazide [facility] mg tablet mg tablet 25 mg dic TAKE 1 TAKE 1 tablet Sports TABLET BY TABLET BY TAKE 1 Med icin MOUTH EVERY MOUTH EVERY TABLET BY e DAY DAY MOUTH EVERY DAY hydrocodone hydrocodone No hydrocodon [facility] 10 10 e 10 [facility] mg-acetamin mg-acetamin mg-acetami dic ophen 325 ophen 325 nophen 325 Sports mg tablet mg tablet mg tablet Medicin TAKE 1 TAKE 1 TAKE 1 e TABLET BY TABLET BY TABLET BY MOUTH EVERY MOUTH EVERY MOUTH 6 TO 8 6 TO 8 EVERY 6 TO HOURS HOURS 8 HOURS NEEDED FOR NEEDED FOR NEEDED FOR PAIN PAIN PAIN latanoprost latanoprost No latanopros [facility] 0.005 % eye 0.005 % eye t 0.005 % [facility] drops drops eye drops dic INSTILL 1 INSTILL 1 INSTILL 1 Sports DROP INTO DROP INTO DROP INTO Medicin BOTH EYES BOTH EYES BOTH EYES e AT BEDTIME AT BEDTIME AT BEDTIME Linzess 145 Linzess 145 No Linzess [facility] mcg capsule mcg capsule 145 mcg [facility] TAKE 1 TAKE 1 capsule dic CAPSULE BY CAPSULE BY TAKE 1 S ports MOUTH MOUTH CAPSULE BY Medicin BEFORE BEFORE MOUTH e BREAKFAST BREAKFAST BEFORE BREAKFAST losartan losartan No losartan Aza barrington 100 mg 100 mg 100 mg [facility] tablet TAKE tablet TAKE tablet dic 1 TABLET BY 1 TABLET BY TAKE 1 Sports MOUTH EVERY MOUTH EVERY TABLET BY Medicin DAY DAY MOUTH e EVERY DAY magnesium magnesium No magnesium [facility] oxide 400 oxide 400 oxide 400 [facility] mg (241.3 mg (241.3 mg (241.3 dic mg mg mg Sports magnesium) magnesium) magnesium) Medicin tablet TAKE tablet TAKE tablet e 1 TABLET BY 1 TABLET BY TAKE 1 MOUTH EVERY MOUTH EVERY TABLET BY DAY DAY MOUTH EVERY DAY meloxicam meloxicam No 1 Q1D meloxicam [facility] 15 mg 15 mg 15 mg [facility] tablet Take tablet Take tablet dic 1 tablet 1 tablet Take 1 Sport s every day every day tablet Med icin by oral by oral every day e route with route with by oral meals. meals. route with meals. metformin metformin No metformin [facility] ER 500 mg ER 500 mg ER 500 mg [facility] tablet,exte tablet,exte tablet,ext dic nded nded ended Sports release 24 release 24 release 24 Medicin hr TAKE 2 hr TAKE 2 hr TAKE 2 e TABLETS BY TABLETS BY TABLETS BY MOUTH EVERY MOUTH EVERY MOUTH DAY AFTER DAY AFTER EVERY DAY EVENING EVENING AFTER MEAL MEAL EVENING MEAL methylpredn methylpredn No methylpred [facility] isolone 4 isolone 4 nisolone 4 [facility] mg tablets mg tablets mg tablets dic in a dose in a dose in a dose Sports pack TAKE 6 pack TAKE 6 pack TAKE Medicin TABLETS ON TABLETS ON 6 TABLETS e DAY 1 DAY 1 ON DAY 1 DIRECTED ON DIRECTED ON PACKAGE AND PACKAGE AND DIRECTED DECREASE BY DECREASE BY ON PACKAGE 1 TAB EACH 1 TAB EACH AND DAY FOR A DAY FOR A DECREASE TOTAL OF 6 TOTAL OF 6 BY 1 TAB DAYS DAYS EACH DAY FOR A TOTAL OF 6 DAYS metronidazo metronidazo No metronidaz [facility] le 500 mg le 500 mg ole 500 mg [facility] tablet TAKE tablet TAKE tablet dic 4 TABLETS 4 TABLETS TAKE 4 Spo rts BY MOUTH BY MOUTH TABLETS BY M edicin NOW ONE NOW ONE MOUTH NOW e DOSE DOSE ONE DOSE nystatin nystatin No nystatin Aza barrington 100,000 100,000 100,000 Orth[facility] e unit/gram unit/gram unit/gram dic topical topical topical Sports powder powder powder Medicin APPLY TO APPLY TO APPLY TO e BREAST BREAST BREAST FOLDS DAILY FOLDS DAILY FOLDS DAILY oxycodone 5 oxycodone 5 No oxycodone [facility] mg tablet mg tablet 5 mg Ortho pe TAKE 1 TAKE 1 tablet dic TABLET BY TABLET BY TAKE 1 Spo rts MOUTH EVERY MOUTH EVERY TABLET BY Medicin 8 HOURS FOR 8 HOURS FOR MOUTH e 5 DAYS 5 DAYS EVERY 8 NEEDED FOR NEEDED FOR HOURS FOR PAIN SCALE PAIN SCALE 5 DAYS 7-10 7-10 NEEDED FOR PAIN SCALE 7-10 Paxlovid Paxlovid No Paxlovid Aza barrington 300 mg (150 300 mg (150 300 mg [facility] mg x 2)-100 mg x 2)-100 (150 mg x dic mg tablets mg tablets 2)-100 mg Sports in a dose in a dose tablets in Medicin pack (EUA) pack (EUA) a dose e TAKE BY TAKE BY pack (EUA) MOUTH 3 MOUTH 3 TAKE BY TABLETS 2 TABLETS 2 MOUTH 3 TIMES A DAY TIMES A DAY TABLETS 2 TIMES A DAY rosuvastati rosuvastati No rosuvastat [facility] n 20 mg n 20 mg in 20 mg Orth[facility] pe tablet TAKE tablet TAKE tablet dic 1 TABLET BY 1 TABLET BY TAKE 1 Sports MOUTH EVERY MOUTH EVERY TABLET BY Medicin DAY WITH A DAY WITH A MOUTH e MEAL MEAL EVERY DAY WITH A MEAL Rybelsus 14 Rybelsus 14 No Rybelsus [facility] mg tablet mg tablet 14 mg Orth ope TAKE 1 TAKE 1 tablet dic TABLET TABLET TAKE 1 Sports DAILY AT DAILY AT TABLET Medic in LEAST 30 LEAST 30 DAILY AT e MINUTES MINUTES LEAST 30 BEFORE BEFORE MINUTES FIRST FOOD, FIRST FOOD, BEFORE BEVERAGE OR BEVERAGE OR FIRST MEDICINE OF MEDICINE OF FOOD, THE DAY THE DAY BEVERAGE OR MEDICINE OF THE DAY topiramate topiramate No topiramate [facility] 25 mg 25 mg 25 mg [facility] tablet TAKE tablet TAKE tablet dic 1 TABLET BY 1 TABLET BY TAKE 1 Sports MOUTH TWICE MOUTH TWICE TABLET BY Medicin A DAY A DAY MOUTH e TWICE A DAY tramadol 50 tramadol 50 No tramadol [facility] mg tablet mg tablet 50 mg Orth ope TAKE 1 TAKE 1 tablet dic TABLET BY TABLET BY TAKE 1 Spo rts MOUTH EVERY MOUTH EVERY TABLET BY Medicin 12 HOURS 12 HOURS MOUTH e NEEDED FOR NEEDED FOR EVERY 12 PAIN PAIN HOURS NEEDED FOR PAIN valacyclovi valacyclovi No valacyclov [facility] r 1 gram r 1 gram ir 1 gram Or thope tablet TAKE tablet TAKE tablet dic 1 TABLET BY 1 TABLET BY TAKE 1 Sports MOUTH EVERY MOUTH EVERY TABLET BY Medicin 8 HOURS 8 HOURS MOUTH e EVERY 8 HOURS venlafaxine venlafaxine No venlafaxin [facility] ER 150 mg ER 150 mg e ER 150 O [facility] capsule,ext capsule,ext mg d ic ended ended capsule,ex Sports release 24 release 24 tended M edicin hr TAKE 1 hr TAKE 1 release 24 e CAPSULE BY CAPSULE BY hr TAKE 1 MOUTH EVERY MOUTH EVERY CAPSULE BY DAY WITH DAY WITH MOUTH FOOD FOOD EVERY DAY WITH FOOD venlafaxine venlafaxine No venlafaxin [facility] ER 75 mg ER 75 mg e ER 75 mg O [facility]ope capsule,ext capsule,ext capsule,ex dic ended ended tended Sports release 24 release 24 release 24 Medicin hr TAKE 2 hr TAKE 2 hr TAKE 2 e CAPSULES BY CAPSULES BY CAPSULES MOUTH EVERY MOUTH EVERY BY MOUTH DAY DAY EVERY DAY vitamin vitamin No vitamin [facility] b-12 b-12 b-12 [facility] 1000mcg 1000mcg 1000mcg dic tablet TAKE tablet TAKE tablet Sports 1/2 TABLET 1/2 TABLET TAKE 1/2 Medicin BY MOUTH BY MOUTH TABLET BY e DAILY DAILY MOUTH DAILY Folic Acid Folic Acid Yes UT 800 MCG 800 MCG Physici Oral Tablet Oral Tablet a ns Biotin Biotin Yes [place] [address] [place] [address]83 MCG Oral Tablet Oral Tablet Multi-Vitam Multi-Vitam Yes U T in Oral in Oral Physici Tablet Tablet ans Aspirin 81 Aspirin 81 Yes UT MG TABS MG TABS Physici ans Vitamin E Vitamin E Yes UT 400 UNIT 400 UNIT Physici Oral Oral ans Capsule Capsule Super B Super B Yes UT Complex Complex Physici Maxi Oral Maxi Oral ans Tablet Tablet Losartan Losartan Yes UT Potassium-H Potassium-H P hysici CTZ 100-25 CTZ 100-25 ans MG Oral MG Oral Tablet Tablet Farxiga 10 Farxiga 10 Yes UT MG Oral MG Oral Physici Tablet Tablet ans Zyrtec 10 Zyrtec 10 Yes UT MG TABS MG TABS Physici ans Vitamin C Vitamin C Yes UT 1000 MG 1000 MG Physici Oral Tablet Oral Tablet a ns Venlafaxine Venlafaxine Yes U T HCl ER 150 HCl ER 150 Phy sici MG Oral MG Oral ans Capsule Capsule Extended Extended Release 24 Release 24 Hour Hour Vitamin D3 Vitamin D3 Yes UT 50 MCG 50 MCG Physici (1999 UT) (1999) ans Oral Oral Capsule Capsule Janumet XR Janumet XR Yes UT 100-1000 MG 100-1000 MG P hysici Oral Tablet Oral Tablet a ns Extended Extended Release 24 Release 24 Hour Hour Zocor 20 MG Zocor 20 MG Yes U T Oral Tablet Oral Tablet P hysici ans Magnesium Magnesium Yes UT 250 MG Oral 250 MG Oral P hysici Tablet Tablet ans Elavil 25 Elavil 25 Yes UT MG TABS MG TABS Physici ans Aleve 220 Aleve 220 Yes UT MG Oral MG Oral Physici Capsule Capsule ans traMADol traMADol Yes UT HCl - 50 MG HCl - 50 MG P hysici Oral Tablet Oral Tablet a ns Zanaflex 4 Zanaflex 4 Yes UT MG Oral MG Oral Physici Capsule Capsule ans Beta Beta Yes UT Carotene Carotene Physici TABS TABS ans Echinacea Echinacea Yes UT CAPS CAPS Physici ans Spironolact Spironolact Yes U T one 25 MG one 25 MG Physi ci Oral Tablet Oral Tablet a ns metFORMIN metFORMIN Yes UT HCl ER 500 HCl ER 500 Phy sici MG Oral MG Oral ans Tablet Tablet Extended Extended Release 24 Release 24 Hour Hour Effexor Effexor Yes UT TABS TABS Physici ans Topiragen Topiragen Yes UT 25 MG TABS 25 MG TABS Phy sici ans Acidophilus Acidophilus Yes U T Oral Oral Physici Capsule Capsule ans Vital Signs Vital Name Observation Time Observation Value Comments Source Height 2022-10-21 00:00:00 68 [in_i] [facility] BMI (Body Mass 2022-10-21 00:00:00 41.1 kg/m2 [facility] Body Weight 2022-10-21 00:00:00 270 [lb_av] [facility] Body height 2019-08-29 12:41:00 68 [in_us] [facility] Weight 2019-08-29 12:41:00 250 [lb_av] [facility] Body mass index 2019-08-29 12:41:00 38.01 kg/m2 [facility] (BMI) [Ratio] Body height 2019-08-01 10:33:00 68 [in_us] [facility] Weight 2019-08-01 10:33:00 265 [lb_av] [facility] Body mass index 2019-08-01 10:33:00 40.29 kg/m2 [facility] (BMI) [Ratio] Height 2019-07-11 11:43:00 68 [in_us] [facility] Weight 2019-07-11 11:43:00 260 [lb_av] [facility] Body Mass Index 2019-07-11 11:43:00 39.53 kg/m2 [facility] Calculated BP Systolic 2018-03-22 11:58:00 128 mm[Hg] [facility] BP Diastolic 2018-03-22 11:58:00 75 mm[Hg] [facility] Weight 2018-03-22 11:58:00 255 [lb_av] [facility] Body Mass Index 2018-03-22 11:58:00 38.77 kg/m2 [facility] Calculated Temperature 2018-03-22 11:58:00 98.5 [degF] [facility] Heart Rate 2018-03-22 11:58:00 58 /min [facility] BP Systolic 2018-02-02 13:02:00 124 mm[Hg] [facility] BP Diastolic 2018-02-02 13:02:00 89 mm[Hg] [facility] Height 2018-02-02 13:02:00 68 [in_us] [facility] Weight 2018-02-02 13:02:00 259 [lb_av] [facility] Body Mass Index 2018-02-02 13:02:00 39.38 kg/m2 [facility] Calculated Temperature 2018-02-02 13:02:00 98.5 [degF] [facility] Heart Rate 2018-02-02 13:02:00 87 /min [facility] O2 SAT 2018-02-02 13:02:00 99 % [facility] BP Systolic 2018-01-20 09:07:00 149 mm[Hg] [facility] BP Diastolic 2018-01-20 09:07:00 87 mm[Hg] [facility] Height 2018-01-20 09:07:00 68 [in_us] [facility] Weight 2018-01-20 09:07:00 259 [lb_av] [facility] Body Mass Index 2018-01-20 09:07:00 39.38 kg/m2 [facility] Calculated Temperature 2018-01-20 09:07:00 97.8 [degF] [facility] Heart Rate 2018-01-20 09:07:00 107 /min [facility] O2 SAT 2018-01-20 09:07:00 98 % [facility] BP Systolic 2017-12-27 10:47:00 149 mm[Hg] [facility] BP Diastolic 2017-12-27 10:47:00 92 mm[Hg] [facility] Height 2017-12-27 10:47:00 68 [in_us] [facility] Weight 2017-12-27 10:47:00 256 [lb_av] [facility] Body Mass Index 2017-12-27 10:47:00 38.93 kg/m2 [facility] Calculated Temperature 2017-12-27 10:47:00 97.6 [degF] [facility] Heart Rate 2017-12-27 10:47:00 91 /min [facility] O2 SAT 2017-12-27 10:47:00 98 % [facility] BP Systolic 2017-10-24 12:35:00 131 mm[Hg] [facility] BP Diastolic 2017-10-24 12:35:00 80 mm[Hg] [facility] Weight 2017-10-24 12:35:00 264 [lb_av] [facility] Body Mass Index 2017-10-24 12:35:00 40.14 kg/m2 [facility] Calculated Temperature 2017-10-24 12:35:00 98.9 [degF] [facility] Heart Rate 2017-10-24 12:35:00 80 /min [facility] O2 SAT 2017-10-24 12:35:00 98 % [facility] BP Systolic 2017-08-01 12:59:00 136 mm[Hg] [facility] BP Diastolic 2017-08-01 12:59:00 85 mm[Hg] [facility] Height 2017-08-01 12:59:00 68 [in_us] [facility] Weight 2017-08-01 12:59:00 294 [lb_av] [facility] Body Mass Index 2017-08-01 12:59:00 44.7 kg/m2 [facility] Calculated Temperature 2017-08-01 12:59:00 97.9 [degF] [facility] Heart Rate 2017-08-01 12:59:00 96 /min [facility] O2 SAT 2017-08-01 12:59:00 98 % [facility] BP Systolic 2017-08-01 12:53:00 136 mm[Hg] [facility] BP Diastolic 2017-08-01 12:53:00 85 mm[Hg] [facility] Weight 2017-08-01 12:53:00 294 [lb_av] [facility] Body Mass Index 2017-08-01 12:53:00 44.7 kg/m2 [facility] Calculated Temperature 2017-08-01 12:53:00 97.9 [degF] [facility] Heart Rate 2017-08-01 12:53:00 96 /min [facility] O2 SAT 2017-08-01 12:53:00 99 % [facility] BP Systolic 2017-04-20 12:33:00 157 mm[Hg] [facility] BP Diastolic 2017-04-20 12:33:00 95 mm[Hg] [facility] Height 2017-04-20 12:33:00 68 [in_us] [facility] Weight 2017-04-20 12:33:00 333 [lb_av] [facility] Body Mass Index 2017-04-20 12:33:00 50.63 kg/m2 [facility] Calculated Temperature 2017-04-20 12:33:00 98.5 [degF] [facility] Heart Rate 2017-04-20 12:33:00 100 /min [facility] O2 SAT 2017-04-20 12:33:00 97 % [facility] Procedures Procedure Date / Time Performing Clinician Source Performed RADEX SPI LUMBOSAC MINIMUM 2022-10-21 00:00:00 A [facility]air [facility] 4 VIEWS Sports Medicine MRI, lumbar spine, w/o 2022-10-21 00:00:00 Ina phillip Orthopedic contrast Sports Medicine XRAY Knee 3 views [id number] 2019-10-22 00:00:00 [facility] Post Op Promis 29 Survey 2019-08-02 00:00:00 [facility] History of Gastric bypass 2017-06-05 00:00:00 [facility] surgery History of Hysterectomy 1989-01-18 00:00:00 [facility] History of Cholecystectomy 1986-02-05 00:00:00 [facility] Fracture [facility] Gallbladder Surgery [facility] Hysterectomy [facility] Knee Replacement [facility] Tonsillectomy [facility] History of Eye surgery [facility] Shoulder [facility] replacement [facility] of [facility]lectomy [facility] History of Knee Surgery [facility] History of Knee [facility] replacement Plan of Care Planned Activity Planned Date Details Comments Source Diagnostic Test Pending 2019-10-23 00:00:00 XRAY Knee 3 views [facility] [id number] [code = 83550] Encounters Start End Encounter Admission Attending Care Care Encounter Source Date/Time Date/Time Type Type Clinicians Facility Department ID 2021-12-23 Outpatient CARLOTA [facility] [id number] [place] 10:48:42 KERA [id number] Health 2021-12-16 Outpatient [facility] [id number] [place] 10:07:14 [id number] Health 2021-11-27 Outpatient ARUN GANDHI [facility] [id number] [facility] 09:33:29 MARY 0610 [facility] [place] 2023-03-02 2023-03-02 Outpatient FOG_Samuel_ AOSM AOSM [id number] Richa 00:00:00 00:00:00 Georgina [id number] [facility] 2023-03-02 2023-03-02 Outpatient FOG_Samuel_ AOSM AOSM [id number] Richa 00:00:00 00:00:00 Georgina [id number] Orth[facility] pe [facility] 2023-03-02 2023-03-02 Outpatient FOG_Samuel_ AOSM AOSM [id number] Richa 00:00:00 00:00:00 Georgina [id number] Orth[facility] pe [facility] e 2023-03-02 2023-03-02 Outpatient FOG_Samuel_ AOSM AOSM [id number] Richa 00:00:00 00:00:00 Georgina [id number] [facility] pe [facility] 2023-01-08 2023-01-08 Outpatient FOG_Samuel_ AOSM AOSM [id number] Richa 00:00:00 00:00:00 Georgina [id number] Ortho pe [facility] e 2023-01-07 2023-01-07 Outpatient FOG_Samuel_ AOSM AOSM [id number] Richa 00:00:00 00:00:00 Georgina [id number] Ortho pe dic [facility] Medicin e 2022-12-18 2022-12-18 Outpatient FOG_A_Provi AOSM AOSM [id number] Richa 00:00:00 00:00:00 daniele [id number] Orthop e dic [facility] e 2022-11-30 2022-11-30 Outpatient FOG_A_Provi AOSM AOSM [id number] Richa 00:00:00 00:00:00 daniele [id number] Orthop e [facility] e 2022-11-30 2022-11-30 Outpatient FOG_A_Provi AOSM AOSM [id number] Richa 00:00:00 00:00:00 daniele [id number] Orthop e [facility] Medic[facility] e 2022-11-07 2022-11-07 Outpatient FOG_A_Provi AOSM AOSM [id number] Richa 00:00:00 00:00:00 daniele [id number] Orthop e [facility] e 2022-11-07 2022-11-07 Outpatient FOG_A_Provi AOSM AOSM [id number] Richa 00:00:00 00:00:00 daniele [id number] Orthop e dic [facility] Medicin e 2022-11-01 2022-11-01 [facility] [id number] [facility] 12:44:00 12:44:00 Pepe Millard [facility] 2022-10-21 2022-10-21 Outpatient FOG_A_Provi AOSM AOSM [id number] Richa 00:00:00 00:00:00 daniele [id number] Orthop e dic [facility] Medic[facility] e 2022-10-21 2022-10-21 Pepe Matthews AOSM [place] - Ortho [id number] Richa 00:00:00 00:00:00 Inge Keene MD: [id number] FOG_Ofc dic [facility], [place] [address] , Ph. [phone] 2022-10-19 2022-10-19 Outpatient FOG_A_Provi AOSM AOSM [id number] Richa 00:00:00 00:00:00 daniele [id number] Orthop e dic Sports Medicin e 2022-10-06 2022-10-06 Outpatient FOG_A_Provi AOSM AOSM [id number] Richa 00:00:00 00:00:00 daniele [id number] Orthop e dic Sports Medicin e 2022-10-06 2022-10-06 Outpatient FOG_A_Provi AOSM AOSM [id number] Richa 00:00:00 00:00:00 daniele [id number] Orthop e dic Sports Medicin e 2022-10-01 2022-10-01 Outpatient FOG_A_Provi AOSM AOSM [id number] Richa 00:00:00 00:00:00 daniele [id number] Orthop e dic Sports Medicin e 2021-12-02 2021-12-17 Inpatient 3 ARUN Cartwright MTO [id number] [facility] 18:29:00 13:35:00 Tomas 0615 Health Rehabil itation [facility] 2019-10-23 2019-10-23 [facility] 6 [id number] [place] 09:15:00 09:15:00 t; oJse COTE [facility]ames COTE M.[facility]. 2019-10-10 2019-10-10 [facility] [id number] [place] 15:00:00 15:00:00 t; KERA MURRAY M.D. [facility] Juliette [facility] j[facility] Garcia 2019-10-10 2019-10-10 [facility] [id number] [place] 11:15:00 11:15:00 t; KERA MURRAY M.D. P hysici JAMES, ans M.D. 2019-10-10 2019-10-10 [facility] Orth[facility] [id number] [place] 10:40:00 10:40:00 t; KERA MURRAY M.D. [facility] P bri COTE [facility] james Garcia [facility] 2019-09-13 2019-09-13 [facility] [id number] [place] 09:00:00 09:00:00 t; Jose COTE [facility] james VAN M.D. 2019-08-29 2019-08-29 Francisco SHAW [facility] Orthopedics [id number] [place] 12:30:00 12:30:00 t; TREMAINE SHAW P.A. - [facility] james Coto P.ARomi 2019-08-29 2019-08-29 Francisco [facility] [id number] [place] 09:00:00 09:00:00 t; KERA MURRAY M.D. P hysici JAMES, ans M.D. 2019-08-01 2019-08-01 Appointmen TERRI [facility] Orthopedics [id number] [place] 10:15:00 10:15:00 t; KERA MURRAY M.D. Trauma [facility].DRomi [facility] 2019-07-23 2019-07-23 Appointmen [facility] [id number] [place] 14:30:00 14:30:00 t; TREMAINE SHAW P.A. Physic [facility]RE[facility]INE [facility] P.ARomi 2019-07-16 2019-07-16 Appointmen [facility] [id number] [place] 07:30:00 07:30:00 t; KREA MURRAY M.D. P hysici JAMES, ans M.D. 2019-07-16 2019-07-16 Outpatient [facility] 7503 [facility] 06:11:00 06:11:00 2019-07-11 2019-07-11 Appointkali MURRAY [facility] Orthopedics [id number] [place] 11:45:00 11:45:00 t; KERA MURRAY M.D. Trauma P bri [facility] 2019-07-05 2019-07-05 Appointmen CARLOTA [facility] Orthopedics 6 [id number] [place] 09:30:00 09:30:00 t; Jose COTE - [facility] james COTE M.D. 2018-03-22 2018-03-22 Appointmen [facility] GynOn [id number] [place] 11:00:00 11:00:00 t; DIAZ HEALY M.D. at [facility] ans MRichard 2018-03-14 2018-03-14 Appointmen [facility] [id number] [place] 10:45:00 10:45:00 t; DIAZ HEALY M.D. at [facility] MRichard 2018-02-02 2018-02-02 Appointkali HEALY [facility] [employer] [id number] [place] 12:15:00 12:15:00 t; MONET, DIAZJose ans M.D. 2018-01-20 2018-01-20 Appointkali [facility] [id number] [place] 09:00:00 09:00:00 t; DIAZ HEALY M.D. at [facility] james Garcia 2018-01-05 2018-01-05 Francisco [facility] [id number] [place] 13:00:00 13:00:00 t; DIAZ HEALY M.D. Physici BARRY, ans M.D. 2017-12-27 2017-12-27 Francisco [facility] [id number] [place] 10:45:00 10:45:00 t; DIAZ HEALY M.D. at [facility] james Garcia 2017-10-24 2017-10-24 Francisco [facility] [id number] [place] 12:30:00 12:30:00 t; DIAZ HEALY M.D. at [facility] james Garcia 2017-08-01 2017-08-01 Appointkali [facility] [id number] [place] 12:45:00 12:45:00 t; DIAZ HEALY M.D. at [facility] james Garcia 2017-05-10 2017-05-10 Francisco [facility] [id number] [place] 10:30:00 10:30:00 t; DIAZ HEALY M.D. at [facility] james Garcia 2017-04-20 2017-04-20 Francisco [facility] [id number] [place] 11:45:00 11:45:00 t; DIAZ HEALY M.D. Physici BARRY, ans M.D. 2017-01-24 2017-01-24 DANK George [facility] [id number] [place] 11:30:00 11:30:00 t; DIAZ HEALY M.D. Physici BARRY, ans M.D. 2016-11-23 2016-11-23 Francisco HEALY [facility] Orthopedics [id number] [place] 11:00:00 11:00:00 t; DIAZ HEALY M.D. [facility] Triny PERALES [place] james Garcia 2016-10-21 2016-10-21 Appointmen MONET DANK [facility] [id number] [place] 10:00:00 10:00:00 t; DIAZ HEALY M.D. Physici BARRY, ans M.D. Results Test Test Test Results Result Source Description Time Comments Comments - MRI L-SPINE 2022-10- W/O CONT 15 16:19:[address] [facility] : 1960 Sex: F Patient Name: KIMMY CROSS Unit No: [id number] EXAMS: CPT CODE: [id number] MRI L-SPINE W/O CONT 78819 DIAGNOSIS: 1. At L1-2 there is mild disc bulging without canal or foraminal narrowing. 2. At L2-3 there is a grade 1 retrolisthesis and disc bulging with moderate left and moderate to marked right foraminal narrowing. Facet degeneration is present with moderate constriction of the thecal sac and prominent posterior epidural fat. 3. At L3-4 there is 4 mm of left foraminal disc protrusion and 3 mm of protrusion in the right foramen. Moderate to marked foraminal narrowing is present. A slight degenerative spondylolisthesis is seen. Moderate to marked constriction of the thecal sac is noted with facet degeneration and prominent posterior epidural fat. 4. At L4-5 there is a degenerative grade 1 spondylolisthesis and 3 mm of left foraminal disc protrusion with compression of the left L4 nerve root and moderate to marked foraminal narrowing. Moderate to marked right foraminal stenosis is seen with compression of the right L4 nerve root and mild disc bulging. Moderate to marked canal stenosis is present with facet degeneration and prominent epidural fat. 5. At L5-S1 there is a unilateral left L5 spondylolysis defect and a grade 1 spondylolisthesis. 3 mm of disc bulging with annular fissuring is present. Moderate to marked left and marked right foraminal narrowing is noted with impingement on the right L5 nerve root. Moderate canal stenosis is seen with facet degeneration. COMMENT: COMPARISON: No prior exams available. Scans were performed in the sagittal and axial planes utilizing T1, T2 and inversion recovery images. Endplate and disc degeneration is seen from L1 to S1. There is a scoliosis convex right. Disc configurations are as described. Spondylitic changes are as noted. The conus is in the expected location. The description these findings assumes a normal count of 5 lumbar type vertebra. at 1619 Reported and signed by: Ariel Kaminski MD CC: Pepe Keene MD Technologist: CANDIDA DIAS RT(R) Transcribed D/ (1827) t.SDR.L [facility] NAME: KIMMY CROSS [address] [place] [address] PHYS: Pepe Sutton MD : 1960 AGE: 61 SEX: F [place] [address] LOC: Y.MRI PHONE #: [phone] EXAM DATE: 11/01/2022 STATUS: REG CLI FAX #: [phone] RAD #: D/C DT PAGE 1 Signed Report Patient Name: KIMMY CROSS Unit No: [id number] EXAMS: CPT CODE: [id number] MRI L-SPINE W/O CONT 20309 (Continued) Orig Print D/T: S: 11/01/2022 (1622) [facility] NAME: KIMMY CROSS [address] [place] [address] PHYS: Pepe Sutton MD : 1960 AGE: 61 SEX: F [place] [address] LOC: Y.MRI PHONE #: [phone] EXAM DATE: 11/01/2022 STATUS: REG CLI FAX #: [phone] RAD #: D/C DT PAGE 2 Signed Report XRAY Knee 3 2019-10- PROCEDURE [facility] views [id number] INFORMATION:Exam: XR Right 09:20:00 KneeExam date and time: 10/23/2019 9:34 AMAge: 58 years oldClinical indication: Pain in right knee; Additional info: /m25.561 pain inright kneeTECHNIQUE:Imaging protocol: XR Right knee.Views: 3 views. AP Obilque LateralCOMPARISON:No relevant prior studies available.FINDINGS:Bones/j oints: Postsurgical changes in the bilateral knees noted, consistentwith total knee arthroplasties. No radiographic evidence of periprostheticfracture or lucency noted. Hardware components appear intact and well-aligned.There is increased tibiofemoral joint space in the right knee compared to theleft knee.Soft tissues: Vascular calcifications noted in the visualized posterior upperleg region.Notes: If there is further concern, recommend follow-up radiographs or MRI forcomplete assessment. IMPRESSION:1. Postsurgical changes in the bilateral knees consistent with total kneearthroplasties. No radiographic evidence of periprosthetic fracture, looseningor other hardware complication. 2. Increased tibiofemoral joint space in theright knee compared to the left knee. This may be secondary to a jointeffusion/fluid collection, the sterility of which cannot be definitivelyevaluated on radiography.Emigdio Roberts DO On 10/23/2019 09:47:31; [id number] by: Emigdio Roberts DODictated Date/time: 10/23/19 09:57Electronically Signed by: Emigdio Roberts DO 10/22/2008:57FINAL REPORT [U] XRAY 2019-09- Images acquired, not [facility] HUMERUS MIN 2 22 reported on this accession VWS RIGHT [id number] 11:19:00 number. [U] XRAY KNEE 1 2019-08- Images acquired, not [facility] OR 2 VWS RIGHT 11 reported on this accession [id number] 12:44:00 number. [U] XRAY 2019-08- Images acquired, not [facility] HUMERUS MIN 2 11 reported on this accession VWS RIGHT [id number] 12:28:00 number. [U] XRAY 2019-07- Images acquired, not [facility] HUMERUS MIN 2 12 reported on this accession VWS RIGHT [id number] 10:29:00 number. TISSUE EXAM 2018-12- Surgical Pathology Report 30 Case: [id number] 12:48:00 Authorizing Provider: Bennie Guerrero MD Collected: 01/11/2019 1111 Ordering Location: [facility] PERI[facility] Received: 01/11/2019 1343 SERVICES Pathologist: Donavan Gordon MD Specimen: Adrenal, Right A. ADRENAL GLAND, MASS, RIGHT, ADRENALECTOMY: - ADRENAL CORTICAL NEOPLASM, FAVOR ADENOMA (SEE COMMENT) - SPECIMEN WEIGHT: 20.5 GRAMS - TUMOR SIZE: 2.9 CM - NO ATYPIA OR MITOSES IDENTIFIED - NO CAPSULAR INVASION IDENTIFIED - NO LYMPHOVASCULAR INVASION IDENTIFIED - NO COAGULATIVE TYPE NECROSIS IDENTIFIED - MARGINS, NEGATIVE FOR TUMOR - UNINVOLVED ADRENAL GLAND WITH NO SIGNIFICANT DIAGNOSTIC ALTERATION Signing Pathologist Direct Phone Line: [phone] signed by Donavan Gordon MD on 01/16/2019 at 12:48 PMSections show prominent intralesional hemorrhage and infarction. No definite coagulative necrosis is seen. No other features of overt malignancy is seen.Immunostain for calretinin is positive, while synaptophysin and PAX8 are negative, supporting the above diagnosis.[id number] 2Adrenal mass A. Right adrenalThe specimen received in formalin labeled with the patient's name and "right adrenal" is a 20.5 gm, 6.6 x 4 x 1.5 cm specimen that consists of adrenal gland and surrounding adipose tissue. The adrenal gland discloses a 2.9 x 2.9 x 1.5 cm nodule that upon sectioning displays a soft friable hemorrhagic center appears surrounded by a thin rim of adrenal parenchyma. [employer] sections of the nodule are submitted in A1-A3. Normal appearing adrenal gland in A4. OK/plPerformed.The interpretation of this case included the use of immunohistochemistry or special stains.Control Slides Examined: In-house known positive controls were evaluated along with the test tissue. These control slides run alongside of the patients sample show appropriate staining. Internal positive and negative controls when available are evaluated Immunohistochemistry technical testing was performed at [facility], Pathology Laboratory where it was developed and its performance characteristics were determined. It has not been cleared or approved by the U.S. Food and Drug Administration. The FDA has determined that such clearance or approval is not necessary. The test is used for clinical purposes. It should not be regarded as investigational or for research. This laboratory is certified under the Clinical Laboratory Improvement Amendments of 1988 (CLIA-88) as qualified to perform high complexity clinical laboratory testing. POCT-GLUCOSE METER 2019-01-12 10:26:00 Test Item Value Reference Range Interpretation Comme [facility] POC-GLUCOSE METER (BEAKER) (test 114 mg/dL 70-[address] [facility] [address] [facility] code = 1538) [facility] 7703 0 [id number] 07:33:00 Test Item Value Reference Range Interpretation Comments PHOSPHORUS (BEAKER) (test code = 3.8 mg/dL 2.3-4.7 604) [id number] 07:33:00 Test Item Value Reference Range Interpretation Comments MAGNESIUM (BEAKER) (test code = 1.7 mg/dL 1.6-2.6 627) BASIC METABOLIC [id number] 07:33:00 Test Item Value Reference Range Interpretation Comments SODIUM (BEAKER) 141 meq/L 136-145 (test code = 381) POTASSIUM (BEAKER) 4.0 meq/L 3.5-5.1 (test code = 379) CHLORIDE (BEAKER) 107 meq/L 98-107 (test code = 382) CO2 (BEAKER) (test 27 meq/L 22-29 code = 355) BLOOD UREA NITROGEN 19 mg/dL 7-21 (BEAKER) (test code = 354) CREATININE (BEAKER) 0.92 mg/dL 0.57-1.25 (test code = 358) GLUCOSE RANDOM 76 mg/dL 70-105 (BEAKER) (test code = 652) CALCIUM (BEAKER) 9.0 mg/dL 8.4-10.2 (test code = 697) EGFR (BEAKER) (test 75 mL/min/1.73 ESTIMA MARGO GFR IS code = 1092) sq m NOT ACCURATE CREATININE CLEARANCE IN PREDICTING GLOMERULAR FILTRATION RATE . ESTIMATED GFR I S NOT APPLICABLE FOR DIALYSIS PATIEN TS. CBC (HEMOGRAM ONLY)2019-01-12 06:27:00 Test Item Value Reference Range Interpretation Comments WHITE BLOOD CELL COUNT (BEAKER) 8.8 K/ L 3.5-10.5 (test code = 775) RED BLOOD CELL COUNT (BEAKER) 4.11 M/ L 3.93-5.22 (test code = 761) HEMOGLOBIN (BEAKER) (test code = 10.8 GM/DL 11.2-15.7 L 410) HEMATOCRIT (BEAKER) (test code = 35.4 % 34.1-44.9 411) MEAN CORPUSCULAR VOLUME (BEAKER) 86.1 fL 79.4-94.8 (test code = 753) MEAN CORPUSCULAR HEMOGLOBIN 26.3 pg 25.6-32.2 (BEAKER) (test code = 751) MEAN CORPUSCULAR HEMOGLOBIN CONC 30.5 GM/DL 32.2-35.5 L (BEAKER) (test code = 752) RED CELL DISTRIBUTION WIDTH 14.5 % 11.7-14.4 H (BEAKER) (test code = 412) PLATELET COUNT (BEAKER) (test 244 K/CU MM 150-450 code = 756) MEAN PLATELET VOLUME (BEAKER) 9.4 fL 9.4-12.3 (test code = 754) NUCLEATED RED BLOOD CELLS 0 /100 WBC 0-0 (BEAKER) (test code = 413) POCT-GLUCOSE [id number] 22:29:00 Test Item Value Reference Range Interpretation Comments POC-GLUCOSE METER 113 mg/dL 70-110 H TESTED AT [place] [address] ([facility]) (test code = BETHANY Dobbins [facility] 1538) [address] POCT-GLUCOSE [id number] 18:01:00 Test Item Value Reference Range Interpretation Comments POC-GLUCOSE METER 149 mg/dL 70-110 H TESTED AT [place] [address] ([facility]) (test code = BETHANY Dobbins [facility] 1538) [address] POCT-GLUCOSE [id number] 15:03:00 Test Item Value Reference Range Interpretation Comments POC-GLUCOSE METER 183 mg/dL 70-110 H TESTED AT [place] [address] ([facility]) (test code = BETHANY Dobbins [place] 1538) [address] POCT-GLUCOSE [id number] 12:32:00 Test Item Value Reference Range Interpretation Comments POC-GLUCOSE METER 193 mg/dL 70-110 H TESTED AT [place] [address] ([facility]) (test code = [place] 1538) [id number] POCT-GLUCOSE [id number] 08:41:00 Test Item Value Reference Range Interpretation Comments POC-GLUCOSE METER 120 mg/dL 70-[address] [facility] (BEAKER) (test code = [place] 1538) [id number] BASIC METABOLIC [id number] 07:52:00 Test Item Value Reference Range Interpretation Comments SODIUM (BEAKER) 142 meq/L 136-145 (test code = 381) POTASSIUM (BEAKER) 4.0 meq/L 3.5-5.1 (test code = 379) CHLORIDE (BEAKER) 107 meq/L 98-107 (test code = 382) CO2 (BEAKER) (test 29 meq/L 22-29 code = 355) BLOOD UREA NITROGEN 22 mg/dL 7-21 H (BEAKER) (test code = 354) CREATININE (BEAKER) 0.96 mg/dL 0.57-1.25 (test code = 358) GLUCOSE RANDOM 108 mg/dL 70-105 H (BEAKER) (test code = 652) CALCIUM (BEAKER) 9.7 mg/dL 8.4-10.2 (test code = 697) EGFR (BEAKER) (test 72 mL/min/1.73 ESTIMA MARGO GFR IS code = 1092) sq m NOT ACCURATE CREATININE CLEARANCE IN PREDICTING GLOMERULAR FILTRATION RATE . ESTIMATED GFR I S NOT APPLICABLE FOR DIALYSIS PATICHE BRANDT [id number] 07:37:00 Test Item Value Reference Range Interpretation Comments HEMOGLOBIN (BEAKER) (test code = 11.7 GM/DL 11.2-15.7 410) XRAY Chest 2 views [id number] 16:55:00DOB: 1960.TECHNIQUE: PA and lateral views of the chest. Comparison: None.CLINICAL HISTORY: Coughing - Coughing.Heart size: Normal. Tortuous calcified aorta.Lungs: No acute consolidation.Pleura: Nopleural effusion. No pneumothorax.Mediastinum and ariane: Unremarkable.Musculoskeletal: Left humerus suture anchor.Support tubings: None.IMPRESSION:1. No acute findings in the chest.--Read by: Daniel Raya MDDictated Date/time: 01/03/18 17:20Electronically Signed by: Daniel Raya MD 01/03/1817:20FINAL REPORTUT PhysiciansRBC, Crossmatch 03:10:00 Test Item Value Reference Range Interpretation Comments Product 1 Code (test code = E4532 PRODCODE1) Unit 1 ID (test code = [id number] UNITID1) Unit 1 ABO (test code = O UNITABO1) Unit 1 Rh (test code = POS UNITRH1) Unit 1 Interp (test code = Compatible UNITINTERP1) Unit 1 Status (test code = RE UNITSTAT1) Product 2 Code (test code = E4545 PRODCODE2) Unit 2 ID (test code = [id number] UNITID2) Unit 2 ABO (test code = O UNITABO2) Unit 2 Rh (test code = POS UNITRH2) Unit 2 Interp (test code = Compatible UNITINTERP2) Unit 2 Status (test code = RE UNITSTAT2) RBC, Crossmatch 01:32:00 Test Item Value Reference Range Interpretation Comments Product 1 Code (test code = E4532 PRODCODE1) Unit 1 ID (test code = [id number] UNITID1) Unit 1 ABO (test code = O UNITABO1) Unit 1 Rh (test code = POS UNITRH1) Unit 1 Interp (test code = Compatible UNITINTERP1) Unit 1 Status (test code = RE UNITSTAT1) Product 2 Code (test code = E0336 PRODCODE2) Unit 2 ID (test code = [id number] UNITID2) Unit 2 ABO (test code = O UNITABO2) Unit 2 Rh (test code = POS UNITRH2) Unit 2 Interp (test code = Compatible UNITINTERP2) Unit 2 Status (test code = RE UNITSTAT2) POC Glucose, [id number] 16:51:00 Test Item Value Reference Range Interpretation Comments POC Glucose (test 93 mg/dL 70-115 N Notify RN or MDIf you code = POCGLUC) consider you r patient critically ill, the Halley Accu-Chek InformII metershould not be used for Glucose determinations. Draw a venous Glucose and send to the Main Lab for Analysis. POC Glucose, [id number] 12:07:00 Test Item Value Reference Range Interpretation Comments POC Glucose (test 136 mg/dL 70-115 H Notify RN or MDIf you code = POCGLUC) consider you r patient critically ill, the Halley Accu-Chek InformII metershould not be used for Glucose determinations. Draw a venous Glucose and send to the Main Lab for Analysis. POC Glucose, [id number] 08:12:00 Test Item Value Reference Range Interpretation Comments POC Glucose (test 115 mg/dL 70-115 N Notify RN or MDIf you code = POCGLUC) consider you r patient critically ill, the Halley Accu-Chek InformII metershould not be used for Glucose determinations. Draw a venous Glucose and send to the Main Lab for Analysis. POC Glucose, [id number] 18:13:00 Test Item Value Reference Range Interpretation Comments POC Glucose (test 134 mg/dL 70-115 H Notify RN or MDIf you code = POCGLUC) consider you r patient critically ill, the Halley Accu-Chek InformII metershould not be used for Glucose determinations. Draw a venous Glucose and send to the Main Lab for Analysis. POC Glucose, [id number] 12:00:00 Test Item Value Reference Range Interpretation Comments POC Glucose (test 142 mg/dL 70-115 H Notify RN or MDIf you code = POCGLUC) consider you r patient critically ill, the Halley Accu-Chek InformII metershould not be used for Glucose determinations. Draw a venous Glucose and send to the Main Lab for Analysis. Comprehensive Metabolic [id number] 06:28:00 Test Item Value Reference Range Interpretation Comments Sodium (test code = 137 mmol/L 135-145 N NA) Potassium (test 3.9 mmol/L 3.5-5.1 N code = K) Chloride (test code 96 mmol/L 98-105 L = CL) Carbon Dioxide 27 mmol/L 22-29 N (test code = CO2) Glucose (test code 133 mg/dL 70-115 H = GLU) Blood Urea Nitrogen 19 mg/dL 6-20 N (test code = BUN) Creatinine (test 1.0 mg/dL 0.5-0.9 H code = CREAT) Calcium (test code 8.9 mg/dL 8.3-10.5 N = CA) Prot Total (test 7.0 g/dL 6.4-8.3 N code = TP) Albumin (test code 4.0 g/dL 3.5-5.2 N = ALB) A/G Ratio (test 1.3 Ratio code = AGRATIO) Globulin (test code 3.0 2.9-3.1 N = GLOB) Bili Total (test 0.3 mg/dL 0.1-0.9 N code = TBIL) Alk Phos (test code 60 U/L 35-104 N = APHOS) AST (test code = 122 U/L 1-32 H AST) ALT (test code = 88 U/L 1-33 H ALT) BUN/Creatinine 19.0 Ratio (test code = BCRATIO) Anion Gap (test 14 mmol/L 7-16 N code = AGAP) Estimated GFR (test >60 eGFR (es timated code = GFR) mL/min/1.73m2 Glomerular Beny tration Rate) is an est imated value,calculate d from the patient's s yarelis creatinine usin g the MDRD equation.I t is NOT the patient 's actual GFR. The eGFR provides a more clinicallyusefu l measure of kidn ey disease than se rum creatinine alone.This calculation blaise es sex and race into account, if the informationis provided. If th e race is not provided , and the patient isAfrican-Ameri can, multiply by 1.2 12. If sex is not prov ided, and thepatient is female, multipl y by 0.742. Results for patients <18 ye ars ofage have not been validated by th e MDRD study and shoul d be interpretedwith caution.eGFR Re sult Interpretation: eGFR > or = 60 is in t he Normal RangeeGF R < 60 may mean kidney diseaseeGFR < 1 5 may mean kidney failureRange s recommended by the National Kidney Foundation,http ://nkd ep.nih.gov CBC with [id number] 06:18:00 Test Item Value Reference Range Interpretation Comments WBC (test code = WBC) 9.1 K/cumm 4.4-10.5 N RBC (test code = RBC) 4.79 M/cumm 3.75-5.20 N Hemoglobin (test code = HGB) 12.0 gm/dL 12.2-14.8 L Hematocrit (test code = HCT) 38.9 % 36.5-44.4 N MCV (test code = MCV) 81.1 fL 80-100 N MCH (test code = MCH) 25.0 pg 27.0-32.5 L MCHC (test code = MCHC) 30.8 g/dL 32.0-37.5 L RDW (test code = RDW) 15.6 % 11.5-14.5 H Platelet Count (test code = 291 K/cumm 140-440 N PLTCT) MPV (test code = MPV) 7.1 fL Diff Method (test code = DIFFM) Auto Neutrophil (test code = NEUT) 75.4 % 36-70 H Lymphocyte (test code = LYMPH) 19.3 % 12-44 N Monocyte (test code = MONO) 4.8 % 0-11 N Eosinophil (test code = EOS) 0.3 % 0-7 N Basophil (test code = BASO) 0.1 % 0-2 N Neutro Abs (test code = ANEUT) 6.8 K/cumm 1.6-7.4 N Lymph Abs (test code = ALYMPH) 1.8 K/cumm 0.5-4.6 N [place] Abs (test code = AMONO) 0.4 K/cumm 0.0-1.2 N Eos Abs (test code = AEOS) 0.03 K/cumm 0.00-0.74 N Baso Abs (test code = ABASO) 0.0 K/cumm 0.00-0.21 N POC Glucose, [id number] 00:01:00 Test Item Value Reference Range Interpretation Comments POC Glucose (test 128 mg/dL 70-115 H If you con carbonation equipment tender your code = POCGLUC) patient crit ically ill, the Halley Accu- Chek InformII meters hould not be used for Glu cose determinations. Draw a venous Glucose and send to the Main Lab for Analysis. POC Glucose, [id number] 13:40:00 Test Item Value Reference Range Interpretation Comments POC Glucose (test 193 mg/dL 70-115 H Notify RN or MDIf you code = POCGLUC) consider you r patient critically ill, the Halley Accu-Chek InformII metershould not be used for Glucose determinations. Draw a venous Glucose and send to the Main Lab for Analysis. POC Glucose, [id number] 11:54:00 Test Item Value Reference Range Interpretation Comments POC Glucose (test 214 mg/dL 70-115 H Notify RN or MDIf you code = POCGLUC) consider you r patient critically ill, the Halley Accu-Chek InformII metershould not be used for Glucose determinations. Draw a venous Glucose and send to the Main Lab for Analysis. Antibody Screen - [id number] 09:14:00 Test Item Value Reference Range Interpretation Comments Antibody Screen (test code = ABSCR) Negative Blood Type and [id number] 09:05:00 Test Item Value Reference Range Interpretation Comments ABO type (test code = ABO) O Rh Type (test code = RH) Positive POC Glucose, [id number] 07:24:00 Test Item Value Reference Range Interpretation Comments POC Glucose (test 129 mg/dL 70-115 H If you con carbonation equipment tender your code = POCGLUC) patient crit ically ill, the Halley Accu- Chek InformII meters hould not be used for Glu cose determinations. Draw a venous Glucose and send to the Main Lab for Analysis. Antibody Screen - [id number] 17:14:00 Test Item Value Reference Range Interpretation Comments Antibody Screen (test code = ABSCR) Negative Blood Type and [id number] 17:03:00 Test Item Value Reference Range Interpretation Comments ABO type (test code = ABO) O Rh Type (test code = RH) Positive POC Glucose, [id number] 11:47:00 Test Item Value Reference Range Interpretation Comments POC Glucose (test 132 mg/dL 70-115 H If you con carbonation equipment tender your code = POCGLUC) patient crit ically ill, the Halley Accu- Chek InformII meters hould not be used for Glu cose determinations. Draw a venous Glucose and send to the Main Lab for Analysis.
[2023-04-29] MEDS ORDERED: FAMOTIDINE 20 MG/2 ML VIAL IV ONE (13:26)
[2023-04-29] MEDS ORDERED: NA CHLORIDE 0.9% 1,000 ML ONE (13:26)
[2023-04-29 13:30] LABS: Absolute Lymphocytes (CBC) 1.5 K/uL (0.7-4.9); Hematocrit 36.3 % (36.0-45.0); Lymphocytes % 21.3 % (15.3-44.8); MCV 80.6 fL (80-100); MPV 7.4 fL (7.6-11.3); Platelets 242 thou/uL (152-406)
[2023-04-29 13:52] LABS: Albumin 3.9 g/dL (3.4-5.0); Bilirubin Total 0.3 mg/dL (0.2-1.0); Potassium 4.2 mEq/L (3.5-5.1)
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
[2023-04-29 15:14] VITALS: TEMP 98.6; O2SAT 100
[2023-04-29 15:16] VITALS: BP 133/75
== END 2023-04-29 14:56 | disposition home or self-care (01) ==
LOC: ER 11:57
DX: K20.90 Esophagitis, unspecified without bleeding (principal); R11.2 Nausea with vomiting, unspecified; I10 Essential (primary) hypertension
CPT/HCPCS: 96361; 87070; 85025; 36415; 87081; 83690; 80053; 96374; 99284; J7030

== ENCOUNTER → 2023-07-25 | Emergency (ER) | payer OTHER ==
[~2023-07-25] MED LIST: KETOROLAC 30 MG/ML INJ ONE
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
[2023-07-26 15:13] VITALS: BP 142/100; TEMP 97; O2SAT 98
== END ==
LOC: ER 20:09
DX: R07.89 Other chest pain (principal); S20.311A Abrasion of right front wall of thorax, initial encounter; S60.811A Abrasion of right wrist, initial encounter; V49.40XA Driver injured in collision with unspecified motor vehicles in traffic accident, initial encounter
CPT/HCPCS: 71250